=== PATIENT | female | born 1955 | race Caucasian/White ===

== ENCOUNTER 2019-01-30 20:17 | Inpatient (IN) | payer BC ==
[~2019-01-30] VITALS: Ht 162.6 cm; Wt 59.0 kg
[~2019-01-30 20:17] MED LIST: ETOMIDATE 20 MG/10 ML ONE; PROPOFOL 10 MG/ML, 100ML IV ONE; ROCURONIUM 10 MG/ML,10ML ONE
[2019-01-30] MEDS ORDERED: SODIUM CHLORIDE 0.9% 1,000ML IVBOLUS ONE (20:30)
[2019-01-30] MEDS ORDERED: ALBUTEROL SULFATE 2.5 MG/3 ML NPPB ONE (20:30)
--- NOTE | 2019-01-30 20:35 | NUR ---
PG CODE CARDIAC @2034
[2019-01-30 20:46] LABS: MEAN CORPUSCULAR HEMOGLOBIN 31.5 pg (27.0-34.8); MEAN CORPUSCULAR HGB CONC 31.9 g/dL (32.4-35.8); MEAN CORPUSCULAR VOLUME 98.8 fL (80-100); MEAN PLATELET VOLUME 9.5 fL (7.4-10.4); PLATELET COUNT 301 x10^3/uL (130-400); RED BLOOD COUNT 4.93 x10^6/uL (3.82-5.3); RED CELL DISTRIBUTION WIDTH 14.6 % (9.6-15.2)
[2019-01-30 20:48] LABS: MD YES
--- NOTE | 2019-01-30 20:49 | NUR ---
Pt presents to ed c/o COPD exacerbation @ home. Wears bipap and bipap broke, precipatating 911 call. Presents to ed w/ tracheal pulling and accessory muscles to breathe. Able to follow commands when asked, but only talking in 1 word sentences. Intubated by Joe PEARSON and equal breath sounds in all four quadrants. 7 ET established 21 at the lip. ET confirmed by xr and md approval. Propofol initiated per Md verbal order. 2 iv's established, og tube established--confirmed by auscultation and aspiration--and johnson catheter in place. Soft restraints applied for pt safety. Pt not able to give accurate hx and only hx known by ems is copd and use of digoxin and a beta dion.
[2019-01-30] MEDS ORDERED: PROPOFOL 100 ML IV ONE (20:54)
[2019-01-30 21:00] LABS: ALANINE AMINOTRANSFERASE 45 U/L (12-78); ALBUMIN 3.7 g/dL (3.4-5.0); ANION GAP 4 mmol/L (5-15); CHLORIDE 102 mmol/L (98-107); CREATININE 1.07 mg/dL (0.55-1.02)
[2019-01-30] MEDS ORDERED: PIPERACILLIN/TAZO/PMX 3.375GM 50 ML IVPB ONE (21:00)
[2019-01-30] MEDS ORDERED: PIPERACILLIN/TAZO/PMX 3.375GM 50 ML ONE (21:00)
[2019-01-30] MEDS ORDERED: VANCOMYCIN 1,200 MG in SODIUM CHLORIDE 0.9% 250 ML IV ONE (21:00)
[2019-01-30] MEDS ORDERED: ROCURONIUM 10 MG/ML,10ML IVPush ONE (21:00)
[2019-01-30] MEDS ORDERED: VANCOMYCIN PER PHARMACY IV ONE (21:00)
[2019-01-30] MEDS ORDERED: ETOMIDATE 20 MG/10 ML IVPush ONE (21:00)
[2019-01-30 21:04] LABS: ALKALINE PHOSPHATASE 68 U/L (45-117); BILIRUBIN,TOTAL 0.3 mg/dL (0.2-1.0); TOTAL PROTEIN 6.8 g/dL (6.4-8.2); TROPONIN I < 0.015 ng/mL (0.000-0.045)
[2019-01-30] MEDS ORDERED: DIGOXIN (21:14)
[2019-01-30] MEDS ORDERED: BETA BLOCKER (21:15)
[2019-01-30] MEDS ORDERED: TICAGRELOR 90 MG TABLET ONE (21:15)
[2019-01-30] MEDS ORDERED: MIDAZOLAM 1 MG/ML, 5ML ONE (21:15)
[2019-01-30] MEDS ORDERED: FENTANYL PF 100 MCG/2ML ONE (21:15)
[2019-01-30] MEDS ORDERED: VERAPAMIL 2.5 MG/ML, 2ML ONE (21:15)
[2019-01-30] MEDS ORDERED: BIVALIRUDIN 250 MG ONE (21:16)
[2019-01-30] MEDS ORDERED: LIDOCAINE 2%, 20ML ONE (21:16)
[2019-01-30] MEDS ORDERED: HEPARIN 1,000 UNITS/ML, 10ML ONE (21:16)
--- NOTE | 2019-01-30 21:20 | NUR ---
Pt transported to laborer driver w/ ACLS transport in place.
[2019-01-30 21:32] LABS: BASOS#(MANUAL) 0.18 x10^3/uL (0-0.1); BASOS% (MANUAL) 1 % (0-1); EOS#(MANUAL) 0.54 x10^3/uL (0.0-0.4); EOS% (MANUAL) 3 % (1-7); LYMPH#(MANUAL) 5.94 x10^3/uL (1-3.4); LYMPHS% (MANUAL) 33 % (22-44); MONOS#(MANUAL) 1.08 x10^3/uL (0.3-2.7); MONOS% (MANUAL) 6 % (2-9); REACTIVE LYMPHS # (MANUAL) 0.54 x10^3/uL (0-0); REACTIVE LYMPHS % (MANUAL) 3 % (0-0); SEG#(MANUAL) 9.72 x10^3/uL (1.8-6.8); SEGS% (MANUAL) 54 % (42-75)
[2019-01-30 21:33] LABS: <PLATELET ESTIMATE> ADEQUATE; <PLT MORPHOLOGY> NORMAL PLT MORPH; <RBC MORPHOLOGY> NORMAL
[2019-01-30 22:30] VITALS: BP_SYST 83; BP_SYST 88; BP_DIAS 53
[2019-01-30] MEDS: SODIUM CHLORIDE 0.9% 1,000 ML IV SCH ×2 (22:51→23:01)
[2019-01-30] MEDS ORDERED: HYDROcodone/APAP 5/325 TABLET PO PRN (23:00)
[2019-01-30] MEDS ORDERED: ACETAMINOPHEN 325 MG TABLET PO PRN (23:00)
[2019-01-30] MEDS ORDERED: DOCUSATE 100 MG CAPSULE PO PRN (23:00)
[2019-01-30] MEDS ORDERED: SODIUM CHLORIDE 0.9%, 500ML IVBOLUS ONE (23:00)
[2019-01-30] MEDS ORDERED: morphine SULFATE 10 MG/ML, 1ML IVPush PRN (23:00)
[2019-01-30] MEDS ORDERED: hydrALAzine 20 MG/ML, 1ML IVPush PRN (23:00)
[2019-01-30] MEDS ORDERED: methylPREDNISolone SOD SUCC 125 MG/2 ML IVPush SCH (23:00)
[2019-01-30] MEDS: ALBUTEROL/IPRATROPIUM 2.5MG/0.5MG, 3 ML INLINE SCH (23:00)
[2019-01-30] MEDS ORDERED: ONDANSETRON 2MG/ML, 2ML IVPush PRN (23:00)
[2019-01-30] MEDS ORDERED: PROPOFOL 100 ML IV PRN (23:12)
[2019-01-30 23:17] LABS: MICROSCOPIC NOT IND
[2019-01-30 23:19] LABS: CULTURE INDICATED? NO
[2019-01-30] MEDS ORDERED: HEPARIN 5,000 UNITS/ML, 1ML SQ SCH (23:30)
[2019-01-30] MEDS ORDERED: GLUCAGON 1 MG IM PRN (23:30)
[2019-01-30] MEDS ORDERED: DEXTROSE 4 GM TAB.CHEW PO PRN (23:30)
[2019-01-30] MEDS ORDERED: SENNA 176 MG/5 ML ORAL SOL NG PRN (23:30)
[2019-01-30] MEDS ORDERED: LIDOCAINE-MPF 1%, 2ML ENDO PRN (23:30)
[2019-01-30] MEDS ORDERED: FENTANYL PF 100 MCG/2ML IVPush PRN (23:30)
[2019-01-30] MEDS ORDERED: SENNA/DOCUSATE TABLET NG PRN (23:30)
[2019-01-30] MEDS ORDERED: BISACODYL 10 MG SUPP PR PRN (23:30)
[2019-01-30] MEDS ORDERED: LACTULOSE 20 GM/30 ML UDC NG PRN (23:30)
[2019-01-30] MEDS ORDERED: PHARMACY MAY ADJ FOR RENAL FX MC SCH (23:30)
[2019-01-30] MEDS ORDERED: DEXTROSE 50%, 50ML SYRINGE IVPush PRN (23:30)
[2019-01-30] MEDS ORDERED: MAGNESIUM SULFATE PMX 2GM/50ML 50 ML IV STA (23:52)
[2019-01-30 23:57] LABS: BASOPHILS # (AUTO) 0.01 x10^3/uL (0-0.1); BASOPHILS % (AUTO) 0 % (0-1); EOSINOPHILS # (AUTO) 0.32 x10^3/uL (0-0.4); EOSINOPHILS % (AUTO) 2 % (1-7); LYMPHOCYTES # (AUTO) 1.15 x10^3/uL (1-3.4); LYMPHOCYTES % (AUTO) 8 % (22-44); MD NO; MEAN CORPUSCULAR HEMOGLOBIN 31.5 pg (27.0-34.8); MEAN CORPUSCULAR HGB CONC 32.2 g/dL (32.4-35.8); MEAN CORPUSCULAR VOLUME 97.8 fL (80-100); MEAN PLATELET VOLUME 8.7 fL (7.4-10.4); MONOCYTES # (AUTO) 0.73 x10^3/uL (0.2-0.8); MONOCYTES % (AUTO) 5 % (2-9); NEUTROPHILS # (AUTO) 12.66 x10^3/uL (1.8-6.8); NEUTROPHILS % (AUTO) 85 % (42-75); PLATELET COUNT 219 x10^3/uL (130-400); RED BLOOD COUNT 4.14 x10^6/uL (3.82-5.3); RED CELL DISTRIBUTION WIDTH 14.1 % (9.6-15.2)
[2019-01-31 00:01] LABS: ANION GAP 5 mmol/L (5-15); CALCIUM 7.7 mg/dL (8.5-10.1); CHLORIDE 109 mmol/L (98-107); CREATININE 0.86 mg/dL (0.55-1.02); TRIGLYCERIDES 44 mg/dL (50-200)
[2019-01-31 00:12] LABS: TROPONIN I 0.019 ng/mL (0.000-0.045)
[2019-01-31 01:03] LABS: INTERNATIONAL NORMALIZED RATIO 1.05 (0.93-1.1)
[2019-01-31] MEDS: ALBUTEROL/IPRATROPIUM 2.5MG/0.5MG, 3 ML INLINE SCH ×2 (02:18→07:30)
[2019-01-31] MEDS: INSULIN LISPRO 100 UNITS/ML, PEN SQ-INSULIN SCH ×4 (03:00→21:00)
[2019-01-31 04:00] VITALS: BP 94/61
[2019-01-31] MEDS: PIPERACILLIN/TAZO/PMX 3.375GM 50 ML IV SCH ×4 (04:45→22:35)
[2019-01-31] MEDS: ENOXAPARIN 40 MG/0.4 ML SQ SCH (04:46)
[2019-01-31 04:57] LABS: ALANINE AMINOTRANSFERASE 49 U/L (12-78); ALBUMIN 3.2 g/dL (3.4-5.0); ANION GAP 4 mmol/L (5-15); CALCIUM 8.1 mg/dL (8.5-10.1); CHLORIDE 107 mmol/L (98-107)
[2019-01-31 05:00] LABS: BILIRUBIN,TOTAL 0.5 mg/dL (0.2-1.0); CHOL/HDL RATIO 2.6; CHOLESTEROL, TOTAL 122 mg/dL (140-239); CREATININE 0.77 mg/dL (0.55-1.02); HDL CHOL % 39 % (28-40); HDL CHOLESTEROL (DIRECT) 47 mg/dL (40-60); LDL CHOLESTEROL,CALCULATED 58 mg/dL (54-169); LDL/HDL RATIO 1.2 (0.5-3.0); TOTAL PROTEIN 5.8 g/dL (6.4-8.2); TRIGLYCERIDES 84 mg/dL (50-200); TROPONIN I 0.017 ng/mL (0.000-0.045); VLDL CHOLESTEROL 17 mg/dL (0-25)
[2019-01-31] MEDS ORDERED: methylPREDNISolone SOD SUCC 125 MG/2 ML IVPush SCH ×2 (05:00)
[2019-01-31 05:01] LABS: MEAN CORPUSCULAR HEMOGLOBIN 30.7 pg (27.0-34.8); MEAN CORPUSCULAR HGB CONC 31.7 g/dL (32.4-35.8); MEAN CORPUSCULAR VOLUME 96.6 fL (80-100); PLATELET COUNT 213 x10^3/uL (130-400); RED BLOOD COUNT 4.37 x10^6/uL (3.82-5.3); RED CELL DISTRIBUTION WIDTH 14.3 % (9.6-15.2)
[2019-01-31 05:05] LABS: ALKALINE PHOSPHATASE 54 U/L (45-117)
[2019-01-31] MEDS: ASPIRIN 81 MG TABLET EC PO SCH (06:04)
[2019-01-31 06:19] LABS: BASOPHILS # (AUTO) 0.01 x10^3/uL (0-0.1); BASOPHILS % (AUTO) 0 % (0-1); EOSINOPHILS # (AUTO) 0.02 x10^3/uL (0-0.4); EOSINOPHILS % (AUTO) 0 % (1-7); LYMPHOCYTES # (AUTO) 0.44 x10^3/uL (1-3.4); LYMPHOCYTES % (AUTO) 5 % (22-44); MD SCAN; MONOCYTES # (AUTO) 0.06 x10^3/uL (0.2-0.8); MONOCYTES % (AUTO) 1 % (2-9); NEUTROPHILS # (AUTO) 8.96 x10^3/uL (1.8-6.8); NEUTROPHILS % (AUTO) 95 % (42-75)
[2019-01-31] MEDS ORDERED: INSULIN LISPRO 100 UNITS/ML, PEN SQ-INSULIN SCH ×2 (07:00)
[2019-01-31] MEDS: BUDESONIDE 0.5 MG/2 ML INHA INH SCH ×2 (08:00→18:55)
[2019-01-31] MEDS: ALBUTEROL/IPRATROPIUM 2.5MG/0.5MG, 3 ML NPPB SCH ×4 (09:44→23:00)
[2019-01-31] MEDS ORDERED: ALBUTEROL/IPRATROPIUM 2.5MG/0.5MG, 3 ML NPPB PRN (10:00)
[2019-01-31] MEDS ORDERED: SIMV20TA3 PO (10:24)
[2019-01-31] MEDS ORDERED: DIGO0.12 PO (10:24)
[2019-01-31] MEDS ORDERED: CLOP75TA52 PO (10:24)
[2019-01-31] MEDS ORDERED: TIOT18CA INH (10:24)
[2019-01-31] MEDS ORDERED: CARV25TA PO (10:24)
[2019-01-31] MEDS: SODIUM CHLORIDE FLUSH 10ML SYR IVF SCH ×2 (11:03→21:00)
[2019-01-31] MEDS: CLOPIDOGREL 75 MG TABLET PO SCH (11:04)
[2019-01-31] MEDS: methylPREDNISolone SOD SUCC 40 MG/ML IVPush SCH ×2 (13:24→21:50)
[2019-01-31 19:30] VITALS: BP 106/55
[2019-01-31] MEDS: SIMVASTATIN 40 MG TABLET PO SCH (21:49)
[2019-01-31] MEDS ORDERED: SODIUM CHLORIDE 0.9% 1,000 ML IV SCH (22:43)
[2019-02-01 01:11] VITALS: BP 102/67
[2019-02-01] MEDS: OMEPRAZOLE 20 MG CAPSULE.DR PO SCH (04:40)
[2019-02-01] MEDS: PIPERACILLIN/TAZO/PMX 3.375GM 50 ML IV SCH ×3 (04:40→21:46)
[2019-02-01] MEDS: methylPREDNISolone SOD SUCC 40 MG/ML IVPush SCH ×3 (04:40→21:46)
[2019-02-01] MEDS: ASPIRIN 81 MG TABLET EC PO SCH (04:41)
[2019-02-01] MEDS: ENOXAPARIN 40 MG/0.4 ML SQ SCH (04:42)
[2019-02-01 05:11] LABS: ANION GAP 6 mmol/L (5-15); CALCIUM 8.4 mg/dL (8.5-10.1); CHLORIDE 107 mmol/L (98-107); CREATININE 1.06 mg/dL (0.55-1.02)
[2019-02-01 05:22] LABS: BASOPHILS % (AUTO) 0 % (0-1); EOSINOPHILS # (AUTO) 0.01 x10^3/uL (0-0.4); EOSINOPHILS % (AUTO) 0 % (1-7); LYMPHOCYTES # (AUTO) 0.68 x10^3/uL (1-3.4); LYMPHOCYTES % (AUTO) 8 % (22-44); MD NO; MEAN CORPUSCULAR HEMOGLOBIN 30.3 pg (27.0-34.8); MEAN CORPUSCULAR HGB CONC 31.3 g/dL (32.4-35.8); MEAN CORPUSCULAR VOLUME 96.9 fL (80-100); MEAN PLATELET VOLUME 9.2 fL (7.4-10.4); MONOCYTES # (AUTO) 0.18 x10^3/uL (0.2-0.8); MONOCYTES % (AUTO) 2 % (2-9); NEUTROPHILS # (AUTO) 8.14 x10^3/uL (1.8-6.8); NEUTROPHILS % (AUTO) 90 % (42-75); PLATELET COUNT 207 x10^3/uL (130-400); RED BLOOD COUNT 4.12 x10^6/uL (3.82-5.3); RED CELL DISTRIBUTION WIDTH 14.2 % (9.6-15.2)
[2019-02-01 06:58] VITALS: BP 107/66
[2019-02-01] MEDS: ALBUTEROL/IPRATROPIUM 2.5MG/0.5MG, 3 ML NPPB SCH ×5 (07:00→22:55)
[2019-02-01] MEDS: BUDESONIDE 0.5 MG/2 ML INHA INH SCH ×2 (07:00→19:10)
[2019-02-01] MEDS: INSULIN LISPRO 100 UNITS/ML, PEN SQ-INSULIN SCH ×4 (07:00→21:00)
[2019-02-01] MEDS: CLOPIDOGREL 75 MG TABLET PO SCH (08:43)
[2019-02-01] MEDS: SODIUM CHLORIDE FLUSH 10ML SYR IVF SCH ×2 (08:46→21:00)
[2019-02-01 12:40] VITALS: BP 115/70
[2019-02-01 20:05] VITALS: BP 114/68
[2019-02-01] MEDS: SIMVASTATIN 40 MG TABLET PO SCH (21:47)
[2019-02-02] MEDS: PIPERACILLIN/TAZO/PMX 3.375GM 50 ML IV SCH (03:01)
[2019-02-02 03:05] VITALS: BP 131/73
[2019-02-02 05:20] LABS: BASOPHILS % (AUTO) 0 % (0-1); EOSINOPHILS # (AUTO) 0.07 x10^3/uL (0-0.4); EOSINOPHILS % (AUTO) 1 % (1-7); LYMPHOCYTES % (AUTO) 6 % (22-44); MD NO; MEAN CORPUSCULAR HEMOGLOBIN 31.6 pg (27.0-34.8); MEAN CORPUSCULAR HGB CONC 32.5 g/dL (32.4-35.8); MEAN CORPUSCULAR VOLUME 97.1 fL (80-100); MEAN PLATELET VOLUME 9.5 fL (7.4-10.4); MONOCYTES # (AUTO) 0.23 x10^3/uL (0.2-0.8); MONOCYTES % (AUTO) 2 % (2-9); NEUTROPHILS # (AUTO) 9.18 x10^3/uL (1.8-6.8); NEUTROPHILS % (AUTO) 91 % (42-75); PLATELET COUNT 195 x10^3/uL (130-400); RED BLOOD COUNT 3.98 x10^6/uL (3.82-5.3); RED CELL DISTRIBUTION WIDTH 14.4 % (9.6-15.2)
[2019-02-02 05:26] LABS: ANION GAP 5 mmol/L (5-15); CALCIUM 8.1 mg/dL (8.5-10.1); CHLORIDE 107 mmol/L (98-107)
[2019-02-02 05:28] LABS: CREATININE 0.78 mg/dL (0.55-1.02); TRIGLYCERIDES 64 mg/dL (50-200)
[2019-02-02] MEDS: ASPIRIN 81 MG TABLET EC PO SCH (05:39)
[2019-02-02] MEDS: OMEPRAZOLE 20 MG CAPSULE.DR PO SCH (05:39)
[2019-02-02] MEDS: methylPREDNISolone SOD SUCC 40 MG/ML IVPush SCH ×3 (05:40→21:01)
[2019-02-02] MEDS: ENOXAPARIN 40 MG/0.4 ML SQ SCH (05:40)
[2019-02-02] MEDS: INSULIN LISPRO 100 UNITS/ML, PEN SQ-INSULIN SCH ×4 (07:00→21:00)
[2019-02-02] MEDS: ALBUTEROL/IPRATROPIUM 2.5MG/0.5MG, 3 ML NPPB SCH ×5 (07:50→22:06)
[2019-02-02] MEDS: BUDESONIDE 0.5 MG/2 ML INHA INH SCH ×2 (07:50→20:53)
[2019-02-02 08:11] VITALS: BP 117/74
[2019-02-02] MEDS: SODIUM CHLORIDE FLUSH 10ML SYR IVF SCH ×2 (09:07→21:01)
[2019-02-02] MEDS: DOXYCYCLINE 100MG TABLET PO SCH ×2 (09:08→21:01)
[2019-02-02] MEDS: CEFDINIR 300 MG CAPSULE PO SCH ×2 (09:08→21:01)
[2019-02-02] MEDS: CLOPIDOGREL 75 MG TABLET PO SCH (09:08)
[2019-02-02 12:42] VITALS: BP 115/72
[2019-02-02 18:46] VITALS: BP 122/69
[2019-02-02] MEDS: SIMVASTATIN 40 MG TABLET PO SCH (21:02)
[2019-02-03 00:49] VITALS: BP 116/74
[2019-02-03 05:23] LABS: BASOPHILS # (AUTO) 0.01 x10^3/uL (0-0.1); BASOPHILS % (AUTO) 0 % (0-1); EOSINOPHILS # (AUTO) 0.09 x10^3/uL (0-0.4); EOSINOPHILS % (AUTO) 1 % (1-7); LYMPHOCYTES # (AUTO) 0.81 x10^3/uL (1-3.4); LYMPHOCYTES % (AUTO) 8 % (22-44); MD NO; MEAN CORPUSCULAR HEMOGLOBIN 31.6 pg (27.0-34.8); MEAN CORPUSCULAR HGB CONC 32.5 g/dL (32.4-35.8); MEAN CORPUSCULAR VOLUME 97.1 fL (80-100); MEAN PLATELET VOLUME 9.4 fL (7.4-10.4); MONOCYTES # (AUTO) 0.41 x10^3/uL (0.2-0.8); MONOCYTES % (AUTO) 4 % (2-9); NEUTROPHILS # (AUTO) 8.89 x10^3/uL (1.8-6.8); NEUTROPHILS % (AUTO) 87 % (42-75); PLATELET COUNT 206 x10^3/uL (130-400); RED BLOOD COUNT 4.12 x10^6/uL (3.82-5.3); RED CELL DISTRIBUTION WIDTH 14.3 % (9.6-15.2)
[2019-02-03 05:41] LABS: CHLORIDE 107 mmol/L (98-107)
[2019-02-03 05:47] LABS: ALANINE AMINOTRANSFERASE 27 U/L (12-78); ALBUMIN 2.9 g/dL (3.4-5.0); ALKALINE PHOSPHATASE 41 U/L (45-117); ANION GAP 5 mmol/L (5-15); BILIRUBIN,TOTAL 0.2 mg/dL (0.2-1.0); CALCIUM 8.5 mg/dL (8.5-10.1); CREATININE 0.75 mg/dL (0.55-1.02); TOTAL PROTEIN 5.3 g/dL (6.4-8.2)
[2019-02-03] MEDS: ALBUTEROL/IPRATROPIUM 2.5MG/0.5MG, 3 ML NPPB SCH ×2 (06:00→10:00)
[2019-02-03] MEDS: BUDESONIDE 0.5 MG/2 ML INHA INH SCH (06:34)
[2019-02-03] MEDS: ASPIRIN 81 MG TABLET EC PO SCH (06:38)
[2019-02-03] MEDS: OMEPRAZOLE 20 MG CAPSULE.DR PO SCH (06:38)
[2019-02-03] MEDS: ENOXAPARIN 40 MG/0.4 ML SQ SCH (06:38)
[2019-02-03] MEDS: INSULIN LISPRO 100 UNITS/ML, PEN SQ-INSULIN SCH ×2 (07:28→11:10)
[2019-02-03 07:57] VITALS: BP 129/78
[2019-02-03] MEDS: DOXYCYCLINE 100MG TABLET PO SCH (07:59)
[2019-02-03] MEDS: CEFDINIR 300 MG CAPSULE PO SCH (07:59)
[2019-02-03] MEDS: CLOPIDOGREL 75 MG TABLET PO SCH (08:02)
[2019-02-03] MEDS: SODIUM CHLORIDE FLUSH 10ML SYR IVF SCH (08:03)
[2019-02-03] MEDS ORDERED: SPIRONOLACTONE 25 MG TABLET PO SCH (09:00)
[2019-02-03] MEDS ORDERED: LISINOPRIL 5 MG TABLET PO SCH (09:00)
[2019-02-03] MEDS ORDERED: PRED20TA PO (09:58)
[2019-02-03] MEDS ORDERED: DOXY100T PO (09:58)
[2019-02-03] MEDS ORDERED: SPIR25TA5 PO (09:58)
[2019-02-03] MEDS ORDERED: OMEP-110 PO (09:58)
[2019-02-03] MEDS ORDERED: ASPI81TA45 PO (09:58)
[2019-02-03] MEDS ORDERED: BUDE10.2 INJ (09:58)
[2019-02-03] MEDS ORDERED: SIMV40TA3 PO (09:58)
[2019-02-03] MEDS ORDERED: CEFD300C37 PO (09:58)
[2019-02-03] MEDS ORDERED: LISI5TAB7 PO (09:58)
[2019-04-03] MEDS ORDERED: PRED10TA PO (08:48)
[2019-04-03] MEDS ORDERED: CARV3.1212 PO (08:48)
[2019-04-03] MEDS ORDERED: DOXY100C2 PO (08:48)
== END 2019-02-03 11:47 | disposition home or self-care (01) | DRG 208 ==
LOC: ED 21:30 → EDIP 21:35 → CSU 22:07 → 5SO 01-31 14:25 → DCLOUNGE 02-03 11:38
PROVIDERS: ADMIT Internal Medicine; ATTEND Internal Medicine
PROC: 5A1935Z Respiratory Ventilation, Less than 24 Consecutive Hours (ICD-10-PCS; principal; 2019-01-30)
PROC: 0BH17EZ Insertion of Endotracheal Airway into Trachea, Via Natural or Artificial Opening (ICD-10-PCS; 2019-01-30)
PROC: 4A023N7 Measurement of Cardiac Sampling and Pressure, Left Heart, Percutaneous Approach (ICD-10-PCS; 2019-01-30)
PROC: B2111ZZ Fluoroscopy of Multiple Coronary Arteries using Low Osmolar Contrast (ICD-10-PCS; 2019-01-30)
PROC: B2151ZZ Fluoroscopy of Left Heart using Low Osmolar Contrast (ICD-10-PCS; 2019-01-30)
PROC: 0T9B70Z Drainage of Bladder with Drainage Device, Via Natural or Artificial Opening (ICD-10-PCS; 2019-01-30)
DX: J96.01 Acute respiratory failure with hypoxia (principal); J44.1 Chronic obstructive pulmonary disease with (acute) exacerbation; Z99.11 Dependence on respirator [ventilator] status; J44.0 Chronic obstructive pulmonary disease with (acute) lower respiratory infection; I25.10 Atherosclerotic heart disease of native coronary artery without angina pectoris; E78.5 Hyperlipidemia, unspecified; I25.5 Ischemic cardiomyopathy; I50.9 Heart failure, unspecified; Z95.5 Presence of coronary angioplasty implant and graft; Z95.810 Presence of automatic (implantable) cardiac defibrillator; Z99.81 Dependence on supplemental oxygen; F17.210 Nicotine dependence, cigarettes, uncomplicated; G47.33 Obstructive sleep apnea (adult) (pediatric); I11.0 Hypertensive heart disease with heart failure; I25.2 Old myocardial infarction; J20.9 Acute bronchitis, unspecified
CPT/HCPCS: 36415; 36600; 84145; 93458; 99291; J3490; J7613; J7620; J7626; 71045; 80047; 80048; 80053; 80061; 80162; 81003; 82803; 82962; 83605; 83735; 83880; 84100; 84443; 84478; 84484; 85025; 85610; 85730; 87040; 87070; 87077; 87081; 87186; 87205; 93005; 93306; 94002; 94003; 94640; 96365; 99156; C1769; C1894; G0378; J0583; J1644; J1650; J2250; J2543; J2704; J3010; J3370; C1887; J1815; J2920; J2930; J3475; J7030; J7040; J7050; J7512; Q9967

== ENCOUNTER 2019-05-13 16:37 | Inpatient (IN) | payer BC ==
[~2019-05-13] VITALS: Ht 162.6 cm; Wt 64.0 kg
[~2019-05-13 16:37] MED LIST changes: +ASPI81TA45 PO; +BETA BLOCKER; +BUDE10.2 INJ; +CARV25TA PO; +CARV3.1212 PO; +CEFD300C37 PO; +CLOP75TA52 PO; +DIGO0.12 PO; +DIGOXIN; +DOXY100C2 PO; +DOXY100T PO; -ETOMIDATE 20 MG/10 ML ONE; +LISI5TAB7 PO; +OMEP-110 PO; +PRED10TA PO; +PRED20TA PO; -PROPOFOL 10 MG/ML, 100ML IV ONE; -ROCURONIUM 10 MG/ML,10ML ONE; +SIMV20TA3 PO; +SIMV40TA3 PO; +SPIR25TA5 PO; +TIOT18CA INH
[2019-05-13] MEDS: SODIUM CHLORIDE 0.9% 1,000 ML IV SCH (17:12)
[2019-05-13] MEDS ORDERED: CEFAZOLIN PMX 1GM/50ML 50 ML IVPB ONE (17:30)
[2019-05-13 17:43] VITALS: BP 124/80
[2019-05-13] MEDS: PLEASE ENTER HEIGHT AND WEIGHT MC SCH (18:04)
[2019-05-13 18:14] VITALS: BP 124/80
[2019-05-13] MEDS ORDERED: SIMV20TA3 PO (18:29)
[2019-05-13 19:29] VITALS: BP 109/63
[2019-05-13] MEDS ORDERED: ALBUTEROL SULFATE 2.5 MG/3 ML HHN SCH (19:30)
[2019-05-13] MEDS ORDERED: IPRATROPIUM 0.5 MG/2.5 ML INHA HHN SCH (19:30)
[2019-05-13 19:50] VITALS: BP 169/69
[2019-05-13 19:55] VITALS: BP 131/77
[2019-05-13] MEDS ORDERED: AMIODARONE IN D5W 100 ML IV ONE (20:00)
[2019-05-13] MEDS ORDERED: AMIODARONE 150 MG in DEXTROSE 5% 100 ML IV ONE ×2 (20:08→20:09)
[2019-05-13] MEDS ORDERED: AMIODARONE 900 MG in DEXTROSE 5% 482 ML IV PRN (20:15)
[2019-05-13] MEDS: ALBUTEROL/IPRATROPIUM 2.5MG/0.5MG, 3 ML NPPB SCH (20:25)
[2019-05-13] MEDS: BUDESONIDE 0.5 MG/2 ML INHA HHN SCH (20:25)
[2019-05-13] MEDS: SIMVASTATIN 20 MG TABLET PO SCH (20:36)
[2019-05-13 20:53] VITALS: BP 105/62
[2019-05-14] MEDS: SODIUM CHLORIDE 0.9% 1,000 ML IV SCH ×2 (01:12→10:44)
[2019-05-14 01:13] VITALS: BP 101/61
[2019-05-14] MEDS: PLEASE ENTER HEIGHT AND WEIGHT MC SCH (02:04)
[2019-05-14] MEDS: ALBUTEROL/IPRATROPIUM 2.5MG/0.5MG, 3 ML NPPB SCH ×4 (03:00→20:14)
[2019-05-14] MEDS: ASPIRIN 81 MG TABLET EC PO SCH (06:00)
[2019-05-14] MEDS: CLOPIDOGREL 75 MG TABLET PO SCH (08:15)
[2019-05-14] MEDS: CARVEDILOL 3.125 MG TABLET PO SCH ×2 (08:28→17:24)
[2019-05-14 09:04] VITALS: BP 110/76
[2019-05-14 09:58] LABS: BASOPHILS # (AUTO) 0.05 x10^3/uL (0-0.1); BASOPHILS % (AUTO) 1 % (0-1); EOSINOPHILS # (AUTO) 0.14 x10^3/uL (0-0.4); EOSINOPHILS % (AUTO) 2 % (1-7); LYMPHOCYTES # (AUTO) 2.18 x10^3/uL (1-3.4); LYMPHOCYTES % (AUTO) 24 % (22-44); MD NO; MEAN CORPUSCULAR HEMOGLOBIN 30.9 pg (27.0-34.8); MEAN CORPUSCULAR HGB CONC 32.3 g/dL (32.4-35.8); MEAN CORPUSCULAR VOLUME 95.8 fL (80-100); MEAN PLATELET VOLUME 8.1 fL (7.4-10.4); MONOCYTES % (AUTO) 8 % (2-9); NEUTROPHILS # (AUTO) 6.07 x10^3/uL (1.8-6.8); NEUTROPHILS % (AUTO) 66 % (42-75); PLATELET COUNT 365 x10^3/uL (130-400); RED BLOOD COUNT 4.61 x10^6/uL (3.82-5.3); RED CELL DISTRIBUTION WIDTH 13.6 % (9.6-15.2)
[2019-05-14 09:59] LABS: ALANINE AMINOTRANSFERASE 13 U/L (12-78); ALBUMIN 3.5 g/dL (3.4-5.0); ANION GAP 5 mmol/L (5-15); CALCIUM 8.5 mg/dL (8.5-10.1); CHLORIDE 108 mmol/L (98-107); CREATININE 0.77 mg/dL (0.55-1.02)
[2019-05-14 10:05] LABS: ALKALINE PHOSPHATASE 155 U/L (45-117); BILIRUBIN,TOTAL 0.4 mg/dL (0.2-1.0); TOTAL PROTEIN 6.3 g/dL (6.4-8.2)
[2019-05-14] MEDS: BUDESONIDE 0.5 MG/2 ML INHA HHN SCH ×2 (10:23→20:14)
[2019-05-14] MEDS: AMIODARONE 200 MG TABLET PO SCH ×2 (10:48→20:02)
[2019-05-14 12:37] VITALS: BP 103/61
[2019-05-14] MEDS: SIMVASTATIN 20 MG TABLET PO SCH (20:02)
[2019-05-14 21:42] VITALS: BP 108/62
[2019-05-14] MEDS ORDERED: ALBU18HF INH (23:25)
[2019-05-14] MEDS ORDERED: BUDE10.2 INH (23:25)
[2019-05-15] VITALS (7 sets, daily range): BP systolic 108–145; BP diastolic 58–80
[2019-05-15] MEDS: ALBUTEROL/IPRATROPIUM 2.5MG/0.5MG, 3 ML NPPB SCH ×4 (03:00→21:00)
[2019-05-15] MEDS: ASPIRIN 81 MG TABLET EC PO SCH (05:34)
[2019-05-15] MEDS: CARVEDILOL 3.125 MG TABLET PO SCH ×2 (05:34→17:32)
[2019-05-15] MEDS: BUDESONIDE 0.5 MG/2 ML INHA HHN SCH ×2 (08:38→21:00)
[2019-05-15] MEDS: CLOPIDOGREL 75 MG TABLET PO SCH (09:00)
[2019-05-15] MEDS ORDERED: SODIUM CHLORIDE 0.9% 1,000 ML IV SCH (09:00)
[2019-05-15] MEDS ORDERED: MIDAZOLAM 1 MG/ML, 5ML ONE (09:30)
[2019-05-15] MEDS ORDERED: FENTANYL PF 100 MCG/2ML ONE (09:30)
[2019-05-15] MEDS ORDERED: CEFAZOLIN PMX 1GM/50ML 50 ML ONE (09:30)
[2019-05-15] MEDS ORDERED: LIDOCAINE 2%, 20ML ONE (09:31)
[2019-05-15] MEDS ORDERED: CEFAZOLIN 1,000 MG ONE (09:31)
[2019-05-15] MEDS ORDERED: HOLD MEDICATION MC PRN (10:30)
[2019-05-15] MEDS: AMIODARONE 200 MG TABLET PO SCH ×2 (11:23→20:49)
[2019-05-15] MEDS ORDERED: AMIO200T42 PO (12:31)
[2019-05-15] MEDS ORDERED: CEFAZOLIN PMX 1GM/50ML 50 ML IV ONE (13:00)
[2019-05-15] MEDS ORDERED: LISI5TAB7 PO (14:17)
[2019-05-15] MEDS ORDERED: AMIODARONE 150 MG in DEXTROSE 5% 100 ML IV ONE (15:30)
[2019-05-15] MEDS ORDERED: MAGNESIUM SULFATE PMX 2GM/50ML 50 ML IV ONE (15:30)
[2019-05-15 16:18] LABS: ANION GAP 6 mmol/L (5-15); CALCIUM 8.8 mg/dL (8.5-10.1); CHLORIDE 105 mmol/L (98-107); CREATININE 0.73 mg/dL (0.55-1.02)
[2019-05-15] MEDS: AMIODARONE 900 MG in DEXTROSE 5% 482 ML IV PRN (16:24)
[2019-05-15] MEDS: SIMVASTATIN 20 MG TABLET PO SCH (20:49)
[2019-05-15] MEDS: METHOCARBAMOL 500 MG TABLET PO PRN (20:49)
[2019-05-15] MEDS: SODIUM CHLORIDE FLUSH 10ML SYR IVF SCH (20:49)
[2019-05-15] MEDS ORDERED: LIDODERM 5% PATCH TD ONE (21:00)
[2019-05-15] MEDS ORDERED: AMIODARONE 50 MG/ML, 3ML IVPush ONE (21:30)
[2019-05-15] MEDS ORDERED: AMIODARONE IN D5W 100 ML IV SCH (21:30)
[2019-05-15] MEDS ORDERED: LIDOCAINE IV PRN ×3 (22:00)
[2019-05-15] MEDS ORDERED: DEX IV PRN ×3 (22:00)
[2019-05-15] MEDS: LIDOCAINE IV PRN (22:06)
[2019-05-15] MEDS: DEX IV PRN (22:06)
[2019-05-16] VITALS: BP 104/70
[2019-05-16 01:35] VITALS: BP 97/64
[2019-05-16] MEDS: ALBUTEROL/IPRATROPIUM 2.5MG/0.5MG, 3 ML NPPB SCH ×4 (03:00→20:18)
[2019-05-16] MEDS: ASPIRIN 81 MG TABLET EC PO SCH (05:36)
[2019-05-16] MEDS: METHOCARBAMOL 500 MG TABLET PO PRN ×3 (05:36→20:44)
[2019-05-16] MEDS: CARVEDILOL 3.125 MG TABLET PO SCH ×2 (05:37→18:04)
[2019-05-16] MEDS: AMIODARONE 900 MG in DEXTROSE 5% 482 ML IV PRN ×2 (05:40→20:52)
[2019-05-16] MEDS: DEX IV PRN ×3 (05:41→22:40)
[2019-05-16] MEDS: LIDOCAINE IV PRN ×3 (05:41→22:40)
[2019-05-16] MEDS: BUDESONIDE 0.5 MG/2 ML INHA HHN SCH ×2 (08:37→20:18)
[2019-05-16 08:39] VITALS: BP 109/74
[2019-05-16] MEDS: AMIODARONE 200 MG TABLET PO SCH ×2 (08:49→20:44)
[2019-05-16] MEDS: SODIUM CHLORIDE FLUSH 10ML SYR IVF SCH ×2 (09:00→20:45)
[2019-05-16] MEDS: CLOPIDOGREL 75 MG TABLET PO SCH (10:15)
[2019-05-16 12:56] VITALS: BP 125/85
[2019-05-16] MEDS ORDERED: HEPARIN 5,000 UNITS/ML, 1ML IV PRN (13:00)
[2019-05-16] MEDS ORDERED: HEPARIN 25,000 UNITS/500ML PMX 500 ML IV PRN (13:00)
[2019-05-16] MEDS: HEPARIN 25,000 UNITS/500ML PMX 500 ML IV PRN (13:12)
[2019-05-16 18:03] VITALS: BP 111/76
[2019-05-16 19:58] VITALS: BP 114/77
[2019-05-16] MEDS: SIMVASTATIN 20 MG TABLET PO SCH (20:44)
[2019-05-16] MEDS: FILTER 0.22 MICRON IV PRN (20:53)
[2019-05-16] MEDS: HEPARIN 5,000 UNITS/ML, 1ML IV PRN (21:20)
[2019-05-16] MEDS ORDERED: ONDANSETRON 2MG/ML, 2ML IVPush PRN (23:00)
[2019-05-16] MEDS: DEX IV SCH (23:45)
[2019-05-16] MEDS: LIDOCAINE IV SCH (23:45)
[2019-05-17 01:12] VITALS: BP 119/77
[2019-05-17] MEDS: ALBUTEROL/IPRATROPIUM 2.5MG/0.5MG, 3 ML NPPB SCH ×4 (03:00→20:10)
[2019-05-17] MEDS: ASPIRIN 81 MG TABLET EC PO SCH (05:04)
[2019-05-17] MEDS: HEPARIN 5,000 UNITS/ML, 1ML IV PRN (05:04)
[2019-05-17] MEDS: CARVEDILOL 3.125 MG TABLET PO SCH ×2 (05:04→18:18)
[2019-05-17] MEDS: BUDESONIDE 0.5 MG/2 ML INHA HHN SCH ×2 (07:16→20:10)
[2019-05-17 07:51] VITALS: BP 127/82
[2019-05-17] MEDS: METHOCARBAMOL 500 MG TABLET PO PRN ×2 (08:16→18:18)
[2019-05-17] MEDS: AMIODARONE 200 MG TABLET PO SCH ×2 (08:16→21:18)
[2019-05-17] MEDS: CLOPIDOGREL 75 MG TABLET PO SCH (08:16)
[2019-05-17] MEDS: SODIUM CHLORIDE FLUSH 10ML SYR IVF SCH ×2 (08:17→21:18)
[2019-05-17 11:41] LABS: MEAN CORPUSCULAR HEMOGLOBIN 30.7 pg (27.0-34.8); MEAN CORPUSCULAR HGB CONC 32.5 g/dL (32.4-35.8); MEAN CORPUSCULAR VOLUME 94.2 fL (80-100); MEAN PLATELET VOLUME 8.5 fL (7.4-10.4); PLATELET COUNT 330 x10^3/uL (130-400); RED BLOOD COUNT 4.58 x10^6/uL (3.82-5.3); RED CELL DISTRIBUTION WIDTH 13.4 % (9.6-15.2)
[2019-05-17 11:45] LABS: ALBUMIN 3.4 g/dL (3.4-5.0); ANION GAP 7 mmol/L (5-15); CALCIUM 8.5 mg/dL (8.5-10.1); CHLORIDE 101 mmol/L (98-107)
[2019-05-17 11:52] LABS: ALANINE AMINOTRANSFERASE 15 U/L (12-78); ALKALINE PHOSPHATASE 144 U/L (45-117); BILIRUBIN,TOTAL 0.4 mg/dL (0.2-1.0); CREATININE 0.76 mg/dL (0.55-1.02); TOTAL PROTEIN 6.5 g/dL (6.4-8.2)
[2019-05-17 12:01] LABS: BASOPHILS # (AUTO) 0.03 x10^3/uL (0-0.1); BASOPHILS % (AUTO) 0 % (0-1); EOSINOPHILS # (AUTO) 0.16 x10^3/uL (0-0.4); EOSINOPHILS % (AUTO) 1 % (1-7); LYMPHOCYTES # (AUTO) 1.39 x10^3/uL (1-3.4); LYMPHOCYTES % (AUTO) 12 % (22-44); MD SCAN; MONOCYTES # (AUTO) 0.66 x10^3/uL (0.2-0.8); MONOCYTES % (AUTO) 6 % (2-9); NEUTROPHILS # (AUTO) 9.78 x10^3/uL (1.8-6.8); NEUTROPHILS % (AUTO) 81 % (42-75)
[2019-05-17 12:16] VITALS: BP 130/80
[2019-05-17] MEDS: DEX IV SCH (13:26)
[2019-05-17] MEDS: LIDOCAINE IV SCH (13:26)
[2019-05-17] MEDS: AMIODARONE 900 MG in DEXTROSE 5% 482 ML IV PRN (13:29)
[2019-05-17] MEDS: HEPARIN 25,000 UNITS/500ML PMX 500 ML IV PRN (15:44)
[2019-05-17 18:14] VITALS: BP 114/70
[2019-05-17 19:01] VITALS: BP 116/70
[2019-05-17] MEDS: SIMVASTATIN 20 MG TABLET PO SCH (21:18)
[2019-05-18 01:41] VITALS: BP 107/65
[2019-05-18] MEDS: ALBUTEROL/IPRATROPIUM 2.5MG/0.5MG, 3 ML NPPB SCH ×5 (03:00→19:44)
[2019-05-18 05:00] VITALS: BP 145/87
[2019-05-18] MEDS: DEX IV SCH (05:32)
[2019-05-18] MEDS: LIDOCAINE IV SCH (05:32)
[2019-05-18] MEDS: AMIODARONE 900 MG in DEXTROSE 5% 482 ML IV PRN (05:33)
[2019-05-18] MEDS: FILTER 0.22 MICRON IV PRN (06:21)
[2019-05-18 07:35] VITALS: BP 137/78
[2019-05-18] MEDS: BUDESONIDE 0.5 MG/2 ML INHA HHN SCH ×2 (09:30→19:44)
[2019-05-18] MEDS: SODIUM CHLORIDE FLUSH 10ML SYR IVF SCH ×2 (09:55→20:54)
[2019-05-18] MEDS: ASPIRIN 81 MG TABLET EC PO SCH (09:55)
[2019-05-18] MEDS: CLOPIDOGREL 75 MG TABLET PO SCH (09:55)
[2019-05-18] MEDS: AMIODARONE 200 MG TABLET PO SCH ×2 (09:55→20:53)
[2019-05-18] MEDS: CARVEDILOL 3.125 MG TABLET PO SCH ×2 (09:55→17:59)
[2019-05-18] MEDS ORDERED: methylPREDNISolone SOD SUCC 125 MG/2 ML IVPush SCH (11:00)
[2019-05-18 13:00] VITALS: BP 108/63
[2019-05-18] MEDS: HEPARIN 25,000 UNITS/500ML PMX 500 ML IV PRN (13:10)
[2019-05-18] MEDS ORDERED: CHOLECALCIFEROL 400 UNITS/ML ORAL SOL PO SCH (16:30)
[2019-05-18] MEDS ORDERED: CHOLECALCIFEROL 400 UNITS TABLET PO SCH (17:08)
[2019-05-18] MEDS: CHOLECALCIFEROL 400 UNITS TABLET PO SCH (17:19)
[2019-05-18] MEDS: methylPREDNISolone SOD SUCC 125 MG/2 ML IVPush SCH ×2 (17:19→23:23)
[2019-05-18] MEDS: ASCORBIC ACID 500 MG TABLET PO SCH (17:20)
[2019-05-18] MEDS: SIMVASTATIN 20 MG TABLET PO SCH (20:54)
[2019-05-18] MEDS: HYDROcodone/APAP 5/325 TABLET PO PRN (20:55)
[2019-05-18 21:03] VITALS: BP 111/70
[2019-05-19 00:16] VITALS: BP 109/68
[2019-05-19] MEDS: ALBUTEROL/IPRATROPIUM 2.5MG/0.5MG, 3 ML NPPB SCH ×4 (02:31→19:22)
[2019-05-19 05:13] LABS: MEAN CORPUSCULAR HEMOGLOBIN 30.9 pg (27.0-34.8); MEAN CORPUSCULAR HGB CONC 32.2 g/dL (32.4-35.8); MEAN PLATELET VOLUME 9.1 fL (7.4-10.4); PLATELET COUNT 268 x10^3/uL (130-400); RED BLOOD COUNT 4.18 x10^6/uL (3.82-5.3); RED CELL DISTRIBUTION WIDTH 13.2 % (9.6-15.2)
[2019-05-19 05:25] LABS: ALBUMIN 2.9 g/dL (3.4-5.0); ANION GAP 5 mmol/L (5-15); CALCIUM 8.6 mg/dL (8.5-10.1); CHLORIDE 99 mmol/L (98-107)
[2019-05-19 05:26] LABS: CREATININE 0.81 mg/dL (0.55-1.02)
[2019-05-19] MEDS: ASPIRIN 81 MG TABLET EC PO SCH (05:43)
[2019-05-19] MEDS: ASCORBIC ACID 500 MG TABLET PO SCH ×2 (05:43→17:58)
[2019-05-19] MEDS: CARVEDILOL 3.125 MG TABLET PO SCH ×2 (05:43→17:58)
[2019-05-19] MEDS: methylPREDNISolone SOD SUCC 125 MG/2 ML IVPush SCH ×4 (05:44→23:27)
[2019-05-19 05:47] VITALS: BP 108/64
[2019-05-19 05:51] LABS: BASOPHILS % (AUTO) 0 % (0-1); EOSINOPHILS % (AUTO) 0 % (1-7); LYMPHOCYTES # (AUTO) 0.45 x10^3/uL (1-3.4); LYMPHOCYTES % (AUTO) 3 % (22-44); MD SCAN; MONOCYTES # (AUTO) 0.21 x10^3/uL (0.2-0.8); MONOCYTES % (AUTO) 2 % (2-9); NEUTROPHILS # (AUTO) 13.54 x10^3/uL (1.8-6.8); NEUTROPHILS % (AUTO) 95 % (42-75)
[2019-05-19] MEDS: BUDESONIDE 0.5 MG/2 ML INHA HHN SCH ×2 (07:00→19:22)
[2019-05-19 08:18] VITALS: BP 94/53
[2019-05-19] MEDS: SODIUM CHLORIDE FLUSH 10ML SYR IVF SCH ×2 (09:00→20:21)
[2019-05-19] MEDS: MULTIVITS,STRESS FORMULA 1 TABLET PO SCH (09:19)
[2019-05-19] MEDS: AMIODARONE 200 MG TABLET PO SCH ×2 (09:19→20:20)
[2019-05-19] MEDS: CLOPIDOGREL 75 MG TABLET PO SCH (09:19)
[2019-05-19 13:21] VITALS: BP 111/61
[2019-05-19] MEDS: CHOLECALCIFEROL 400 UNITS TABLET PO SCH (17:58)
[2019-05-19] MEDS: SIMVASTATIN 20 MG TABLET PO SCH (20:20)
[2019-05-19] MEDS: HYDROcodone/APAP 5/325 TABLET PO PRN (20:21)
[2019-05-19 20:58] VITALS: BP 110/67
[2019-05-20 00:41] VITALS: BP 121/71
[2019-05-20] MEDS: ALBUTEROL/IPRATROPIUM 2.5MG/0.5MG, 3 ML NPPB SCH ×2 (01:59→07:25)
[2019-05-20] MEDS: METHOCARBAMOL 500 MG TABLET PO PRN (03:12)
[2019-05-20 05:28] LABS: ANION GAP 4 mmol/L (5-15); CALCIUM 8.7 mg/dL (8.5-10.1); CHLORIDE 100 mmol/L (98-107); CREATININE 0.84 mg/dL (0.55-1.02)
[2019-05-20 05:29] LABS: MEAN CORPUSCULAR HEMOGLOBIN 30.9 pg (27.0-34.8); MEAN CORPUSCULAR HGB CONC 32.6 g/dL (32.4-35.8); MEAN CORPUSCULAR VOLUME 94.7 fL (80-100); MEAN PLATELET VOLUME 8.5 fL (7.4-10.4); PLATELET COUNT 279 x10^3/uL (130-400); RED BLOOD COUNT 4.06 x10^6/uL (3.82-5.3); RED CELL DISTRIBUTION WIDTH 13.3 % (9.6-15.2)
[2019-05-20] MEDS: CARVEDILOL 3.125 MG TABLET PO SCH (05:46)
[2019-05-20] MEDS: methylPREDNISolone SOD SUCC 125 MG/2 ML IVPush SCH (05:46)
[2019-05-20] MEDS: ASPIRIN 81 MG TABLET EC PO SCH (05:46)
[2019-05-20 05:58] LABS: BASOPHILS # (AUTO) 0.02 x10^3/uL (0-0.1); BASOPHILS % (AUTO) 0 % (0-1); EOSINOPHILS % (AUTO) 0 % (1-7); LYMPHOCYTES # (AUTO) 0.51 x10^3/uL (1-3.4); LYMPHOCYTES % (AUTO) 3 % (22-44); MD SCAN; MONOCYTES # (AUTO) 0.29 x10^3/uL (0.2-0.8); MONOCYTES % (AUTO) 2 % (2-9); NEUTROPHILS # (AUTO) 16.66 x10^3/uL (1.8-6.8); NEUTROPHILS % (AUTO) 95 % (42-75)
[2019-05-20] MEDS: BUDESONIDE 0.5 MG/2 ML INHA HHN SCH (07:25)
[2019-05-20 08:40] VITALS: BP 115/66
[2019-05-20] MEDS: CLOPIDOGREL 75 MG TABLET PO SCH (08:54)
[2019-05-20] MEDS: ASCORBIC ACID 500 MG TABLET PO SCH (08:54)
[2019-05-20] MEDS: AMIODARONE 200 MG TABLET PO SCH (08:54)
[2019-05-20] MEDS: MULTIVITS,STRESS FORMULA 1 TABLET PO SCH (08:54)
[2019-05-20] MEDS: SODIUM CHLORIDE FLUSH 10ML SYR IVF SCH (08:56)
[2019-05-20] MEDS ORDERED: PRED20TA PO (10:20)
== END 2019-05-20 12:05 | disposition home or self-care (01) | DRG 227 ==
LOC: 5SO 16:53 → UNDOADMOB 16:53 → INTOOBSV 16:53 → 5SO 17:12 → INTOOBSV 17:12 → OBSVTOIN 17:12 → DCLOUNGE 05-20 11:56
PROVIDERS: ADMIT Internal Medicine Cardiovascular Disease; ATTEND Internal Medicine Cardiovascular Disease
PROC: 0JPT0PZ Removal of Cardiac Rhythm Related Device from Trunk Subcutaneous Tissue and Fascia, Open Approach (ICD-10-PCS; principal; 2019-05-15)
PROC: 0JH608Z Insertion of Defibrillator Generator into Chest Subcutaneous Tissue and Fascia, Open Approach (ICD-10-PCS; 2019-05-15)
PROC: 02HK3KZ Insertion of Defibrillator Lead into Right Ventricle, Percutaneous Approach (ICD-10-PCS; 2019-05-15)
PROC: 02PA0MZ Removal of Cardiac Lead from Heart, Open Approach (ICD-10-PCS; 2019-05-15)
PROC: 02H63KZ Insertion of Defibrillator Lead into Right Atrium, Percutaneous Approach (ICD-10-PCS; 2019-05-15)
PROC: 5A09357 Assistance with Respiratory Ventilation, Less than 24 Consecutive Hours, Continuous Positive Airway Pressure (ICD-10-PCS; 2019-05-18)
DX: I47.2 Ventricular tachycardia (principal); E46 Unspecified protein-calorie malnutrition; I50.22 Chronic systolic (congestive) heart failure; J44.1 Chronic obstructive pulmonary disease with (acute) exacerbation; I49.01 Ventricular fibrillation; I25.5 Ischemic cardiomyopathy; F17.210 Nicotine dependence, cigarettes, uncomplicated; I08.0 Rheumatic disorders of both mitral and aortic valves; I25.10 Atherosclerotic heart disease of native coronary artery without angina pectoris; I25.2 Old myocardial infarction; Z86.79 Personal history of other diseases of the circulatory system; Z95.5 Presence of coronary angioplasty implant and graft; Z68.24 Body mass index [BMI] 24.0-24.9, adult
CPT/HCPCS: 33263; 36415; 36600; C8929; J3490; J7620; J7626; 71045; 80048; 80053; 80069; 80176; 82803; 83735; 83880; 85025; 85520; 94640; 99156; 99157; C1721; G0378; J0690; J1644; J2250; J3010; Q9957; C8924; J0282; J2930; J7030; J7060

== ENCOUNTER 2019-06-23 08:48 | Inpatient (IN) | payer BC ==
[~2019-06-23] VITALS: Ht 162.6 cm; Wt 60.9 kg
[~2019-06-23 08:48] MED LIST changes: +ALBU18HF INH; +AMIO200T42 PO; +BUDE10.2 INH
[2019-06-23] MEDS: AMIODARONE 150 MG in DEXTROSE 5% 100 ML IV ONE (08:55)
[2019-06-23] MEDS ORDERED: AMIODARONE 900 MG in DEXTROSE 5% 482 ML IV PRN (08:55)
[2019-06-23] MEDS ORDERED: AMIODARONE 50 MG/ML, 3ML ONE (08:57)
[2019-06-23] MEDS ORDERED: MIDAZOLAM 1 MG/ML, 2ML IVPush ONE (09:00)
--- NOTE | 2019-06-23 09:00 | NUR ---
150MG AMIODARONE OVER 10 MINUTES INFUSING NOW.
[2019-06-23] MEDS ORDERED: FENTANYL PF 100 MCG/2ML ONE (09:03)
[2019-06-23] MEDS ORDERED: MIDAZOLAM 1 MG/ML, 2ML ONE (09:03)
[2019-06-23 09:18] LABS: MEAN CORPUSCULAR HEMOGLOBIN 31.2 pg (27.0-34.8); MEAN CORPUSCULAR HGB CONC 32.7 g/dL (32.4-35.8); MEAN CORPUSCULAR VOLUME 95.4 fL (80-100); MEAN PLATELET VOLUME 7.3 fL (7.4-10.4); PLATELET COUNT 448 x10^3/uL (130-400); RED BLOOD COUNT 4.72 x10^6/uL (3.82-5.3); RED CELL DISTRIBUTION WIDTH 14.4 % (9.6-15.2)
--- NOTE | 2019-06-23 09:20 | NUR ---
PATIENT MEDICATED WITH VERSED AND FENTANYL
[2019-06-23 09:26] LABS: INTERNATIONAL NORMALIZED RATIO 1.06 (0.93-1.1); PROTHROMBIN TIME 11.1 Seconds (9.6-11.5)
[2019-06-23 09:27] LABS: ALANINE AMINOTRANSFERASE 46 U/L (12-78); ALBUMIN 3.1 g/dL (3.4-5.0); ANION GAP 6 mmol/L (5-15); CALCIUM 7.9 mg/dL (8.5-10.1); CHLORIDE 100 mmol/L (98-107)
--- NOTE | 2019-06-23 09:28 | NUR ---
PATIENT CARDIOVERTED WITH RETURN TO NSR.
[2019-06-23] MEDS ORDERED: FILTER 0.22 MICRON IV ONE (09:30)
[2019-06-23] MEDS ORDERED: methylPREDNISolone SOD SUCC 125 MG/2 ML IVPush ONE (09:30)
[2019-06-23] MEDS ORDERED: FENTANYL PF 100 MCG/2ML IVPush ONE (09:30)
[2019-06-23] MEDS ORDERED: SODIUM CHLORIDE 0.9%, 500ML IVBOLUS ONE ×3 (09:30→10:30)
--- NOTE | 2019-06-23 09:32 | NUR ---
PATIENT PLACED ON END TITAL CO2 MONITOR.
[2019-06-23 09:33] LABS: ALKALINE PHOSPHATASE 101 U/L (45-117); BILIRUBIN,TOTAL 0.3 mg/dL (0.2-1.0); TOTAL PROTEIN 5.7 g/dL (6.4-8.2)
--- NOTE | 2019-06-23 09:34 | NUR ---
RESPIRATORY IN ROOM.
[2019-06-23] MEDS ORDERED: methylPREDNISolone SOD SUCC 125 MG/2 ML ONE (09:35)
[2019-06-23 09:44] LABS: MD YES
[2019-06-23 09:47] LABS: BAND#(MANUAL) 0.45 x10^3/uL; BANDS%(MANUAL) 2 % (0-7); BASOS#(MANUAL) 0.23 x10^3/uL (0-0.1); BASOS% (MANUAL) 1 % (0-1); LYMPH#(MANUAL) 3.15 x10^3/uL (1-3.4); LYMPHS% (MANUAL) 14 % (22-44); MONOS#(MANUAL) 1.58 x10^3/uL (0.3-2.7); MONOS% (MANUAL) 7 % (2-9); REACTIVE LYMPHS # (MANUAL) 0.68 x10^3/uL (0-0); REACTIVE LYMPHS % (MANUAL) 3 % (0-0); SEG#(MANUAL) 16.43 x10^3/uL (1.8-6.8); SEGS% (MANUAL) 73 % (42-75)
[2019-06-23 09:49] LABS: <PLATELET ESTIMATE> INCREASED; <PLT MORPHOLOGY> NORMAL PLT MORPH; <RBC MORPHOLOGY> NORMAL
--- NOTE | 2019-06-23 10:21 | NUR ---
PATIENT RESTING ON GURNEY ON PHONE. RESPIRATIONS ARE EVEN AND UNLABORED. REPORTS 'FEELING A LOT BETTER". CURRENTLY PACED NSR AT 60BPM.
[2019-06-23] MEDS ORDERED: PIPERACILLIN/TAZO/PMX 3.375GM 50 ML ONE (10:54)
[2019-06-23] MEDS ORDERED: VANCOMYCIN 1,200 MG in SODIUM CHLORIDE 0.9% 250 ML IV ONE (11:00)
[2019-06-23] MEDS ORDERED: VANCOMYCIN PER PHARMACY MC ONE (11:00)
[2019-06-23] MEDS ORDERED: PIPERACILLIN/TAZO/PMX 3.375GM 50 ML IV ONE (11:00)
--- NOTE | 2019-06-23 11:37 | NUR ---
REPORT RECEIVED FROM TEO PETIT. PT IN ROOM 16 NOW.
--- NOTE | 2019-06-23 12:08 | NUR ---
REPORT GIVEN TO MARIAN PETIT.
[2019-06-23] MEDS ORDERED: ACETAMINOPHEN 325 MG TABLET PO PRN (14:00)
[2019-06-23] MEDS ORDERED: POLYETHYLENE GLYCOL 17 GM PACKET PO PRN (14:00)
[2019-06-23] MEDS ORDERED: LORazepam 1MG TABLET PO PRN (14:00)
[2019-06-23] MEDS ORDERED: BISACODYL 10 MG SUPP PR PRN (14:00)
[2019-06-23] MEDS ORDERED: VANCOMYCIN PER PHARMACY MC PRN (14:00)
[2019-06-23] MEDS ORDERED: ONDANSETRON 2MG/ML, 2ML IVPush PRN (14:00)
[2019-06-23] MEDS: methylPREDNISolone SOD SUCC 125 MG/2 ML IVPush SCH ×2 (14:27→19:35)
[2019-06-23] MEDS: ENOXAPARIN 40 MG/0.4 ML SQ SCH (14:27)
[2019-06-23] MEDS ORDERED: PIPERACILLIN/TAZO/PMX 3.375GM 50 ML IV SCH (14:30)
[2019-06-23] MEDS ORDERED: PHARMACOKINETIC MONITORING MC PRN (15:00)
[2019-06-23] MEDS ORDERED: PHARMACOKINETIC CONSULTATION MC ONE (15:00)
[2019-06-23] MEDS ORDERED: AMIO200T42 PO (15:51)
[2019-06-23] MEDS: PIPERACILLIN/TAZO/PMX 3.375GM 50 ML IV SCH ×2 (18:21→22:08)
[2019-06-23 18:51] LABS: MICROSCOPIC INDICATED
[2019-06-23 19:12] LABS: CULTURE INDICATED? NO
[2019-06-23] MEDS: FAMOTIDINE 20 MG TABLET PO SCH (20:42)
[2019-06-23] MEDS: (Budesonide/Formoterol Fumarate (Symbicort 160-4.5 Mcg Inhaler INH SCH (21:00)
[2019-06-23] MEDS ORDERED: TRAZODONE 50MG TABLET PO ONE (21:00)
[2019-06-23] MEDS ORDERED: FAMOTIDINE 20 MG TABLET PO SCH (21:00)
[2019-06-24] MEDS: methylPREDNISolone SOD SUCC 125 MG/2 ML IVPush SCH ×2 (02:06→08:45)
[2019-06-24 04:16] VITALS: BP 94/53
[2019-06-24 04:54] LABS: BASOPHILS % (AUTO) 1 % (0-1); EOSINOPHILS # (AUTO) 0.01 x10^3/uL (0-0.4); EOSINOPHILS % (AUTO) 0 % (1-7); LYMPHOCYTES # (AUTO) 0.79 x10^3/uL (1-3.4); LYMPHOCYTES % (AUTO) 7 % (22-44); MD NO; MEAN CORPUSCULAR HEMOGLOBIN 31.1 pg (27.0-34.8); MEAN CORPUSCULAR HGB CONC 32.9 g/dL (32.4-35.8); MEAN CORPUSCULAR VOLUME 94.5 fL (80-100); MEAN PLATELET VOLUME 7.4 fL (7.4-10.4); MONOCYTES # (AUTO) 0.21 x10^3/uL (0.2-0.8); MONOCYTES % (AUTO) 2 % (2-9); NEUTROPHILS % (AUTO) 90 % (42-75); PLATELET COUNT 162 x10^3/uL (130-400); RED BLOOD COUNT 4.17 x10^6/uL (3.82-5.3); RED CELL DISTRIBUTION WIDTH 14.3 % (9.6-15.2)
[2019-06-24 05:02] LABS: ALBUMIN 2.7 g/dL (3.4-5.0); ANION GAP 4 mmol/L (5-15); CALCIUM 8.4 mg/dL (8.5-10.1); CHLORIDE 105 mmol/L (98-107)
[2019-06-24 05:06] LABS: ALANINE AMINOTRANSFERASE 38 U/L (12-78); ALKALINE PHOSPHATASE 81 U/L (45-117); BILIRUBIN,TOTAL 0.5 mg/dL (0.2-1.0); CREATININE 0.84 mg/dL (0.55-1.02); TOTAL PROTEIN 5.2 g/dL (6.4-8.2)
[2019-06-24] MEDS: ASPIRIN 81 MG TABLET EC PO SCH (05:45)
[2019-06-24] MEDS: PIPERACILLIN/TAZO/PMX 3.375GM 50 ML IV SCH ×4 (05:46→23:12)
[2019-06-24] MEDS: CLOPIDOGREL 75 MG TABLET PO SCH (08:45)
[2019-06-24] MEDS: SENNA/DOCUSATE TABLET PO SCH (08:45)
[2019-06-24] MEDS: (Budesonide/Formoterol Fumarate (Symbicort 160-4.5 Mcg Inhaler INH SCH ×2 (09:52→20:39)
[2019-06-24] MEDS: LISINOPRIL 5 MG TABLET PO SCH (09:55)
[2019-06-24] MEDS: AMIODARONE 200 MG TABLET PO SCH ×2 (09:55→20:38)
[2019-06-24 13:13] VITALS: BP 104/66
[2019-06-24] MEDS: ENOXAPARIN 40 MG/0.4 ML SQ SCH (14:40)
[2019-06-24] MEDS: VANCOMYCIN 1,200 MG in SODIUM CHLORIDE 0.9% 250 ML IV SCH (14:44)
[2019-06-24 17:59] VITALS: BP 106/65
[2019-06-24] MEDS: CARVEDILOL 3.125 MG TABLET PO SCH (18:00)
[2019-06-24 19:49] VITALS: BP 108/63
[2019-06-24] MEDS: FAMOTIDINE 20 MG TABLET PO SCH (20:38)
[2019-06-25] MEDS: ASPIRIN 81 MG TABLET EC PO SCH (05:18)
[2019-06-25] MEDS: CARVEDILOL 3.125 MG TABLET PO SCH ×2 (05:18→17:11)
[2019-06-25] MEDS: PIPERACILLIN/TAZO/PMX 3.375GM 50 ML IV SCH ×3 (05:18→17:14)
[2019-06-25 07:06] VITALS: BP 128/73
[2019-06-25] MEDS: LISINOPRIL 5 MG TABLET PO SCH (08:10)
[2019-06-25] MEDS: SENNA/DOCUSATE TABLET PO SCH (08:10)
[2019-06-25] MEDS: CLOPIDOGREL 75 MG TABLET PO SCH (08:10)
[2019-06-25] MEDS: AMIODARONE 200 MG TABLET PO SCH ×2 (08:10→20:39)
[2019-06-25] MEDS: (Budesonide/Formoterol Fumarate (Symbicort 160-4.5 Mcg Inhaler INH SCH ×2 (08:13→19:44)
[2019-06-25 09:12] LABS: ANION GAP 5 mmol/L (5-15); CALCIUM 8.4 mg/dL (8.5-10.1); CHLORIDE 101 mmol/L (98-107); CREATININE 0.95 mg/dL (0.55-1.02)
[2019-06-25 09:50] LABS: MD YES; MEAN CORPUSCULAR HEMOGLOBIN 30.9 pg (27.0-34.8); MEAN CORPUSCULAR HGB CONC 32.4 g/dL (32.4-35.8); MEAN CORPUSCULAR VOLUME 95.3 fL (80-100); MEAN PLATELET VOLUME 7.2 fL (7.4-10.4); PLATELET COUNT 443 x10^3/uL (130-400); RED BLOOD COUNT 4.72 x10^6/uL (3.82-5.3); RED CELL DISTRIBUTION WIDTH 14.6 % (9.6-15.2)
[2019-06-25 09:52] LABS: <PLATELET ESTIMATE> INCREASED; <PLT MORPHOLOGY> NORMAL PLT MORPH; <RBC MORPHOLOGY> NORMAL; LYMPH#(MANUAL) 0.55 x10^3/uL (1-3.4); LYMPHS% (MANUAL) 3 % (22-44); MONOS#(MANUAL) 0.74 x10^3/uL (0.3-2.7); MONOS% (MANUAL) 4 % (2-9); SEG#(MANUAL) 17.11 x10^3/uL (1.8-6.8); SEGS% (MANUAL) 93 % (42-75)
[2019-06-25 12:30] VITALS: BP 117/78
[2019-06-25] MEDS: VANCOMYCIN 1,200 MG in SODIUM CHLORIDE 0.9% 250 ML IV SCH (13:41)
[2019-06-25] MEDS: ENOXAPARIN 40 MG/0.4 ML SQ SCH (14:46)
[2019-06-25 19:48] VITALS: BP 111/76
[2019-06-25] MEDS: FAMOTIDINE 20 MG TABLET PO SCH (20:38)
[2019-06-26 02:12] VITALS: BP 127/71
[2019-06-26] MEDS: CARVEDILOL 3.125 MG TABLET PO SCH (05:13)
[2019-06-26] MEDS: ASPIRIN 81 MG TABLET EC PO SCH (05:13)
[2019-06-26 05:25] LABS: BASOPHILS # (AUTO) 0.02 x10^3/uL (0-0.1); BASOPHILS % (AUTO) 0 % (0-1); EOSINOPHILS # (AUTO) 0.11 x10^3/uL (0-0.4); EOSINOPHILS % (AUTO) 1 % (1-7); LYMPHOCYTES # (AUTO) 1.09 x10^3/uL (1-3.4); LYMPHOCYTES % (AUTO) 10 % (22-44); MD NO; MEAN CORPUSCULAR HEMOGLOBIN 31.6 pg (27.0-34.8); MEAN CORPUSCULAR HGB CONC 32.9 g/dL (32.4-35.8); MEAN CORPUSCULAR VOLUME 96.1 fL (80-100); MEAN PLATELET VOLUME 7.5 fL (7.4-10.4); MONOCYTES # (AUTO) 0.66 x10^3/uL (0.2-0.8); MONOCYTES % (AUTO) 6 % (2-9); NEUTROPHILS # (AUTO) 8.87 x10^3/uL (1.8-6.8); NEUTROPHILS % (AUTO) 83 % (42-75); PLATELET COUNT 346 x10^3/uL (130-400); RED BLOOD COUNT 4.17 x10^6/uL (3.82-5.3); RED CELL DISTRIBUTION WIDTH 14.6 % (9.6-15.2)
[2019-06-26 05:29] LABS: ALBUMIN 2.6 g/dL (3.4-5.0); CALCIUM 7.9 mg/dL (8.5-10.1); CHLORIDE 103 mmol/L (98-107)
[2019-06-26 05:32] LABS: ANION GAP 3 mmol/L (5-15); CREATININE 0.75 mg/dL (0.55-1.02)
[2019-06-26 07:29] VITALS: BP 118/70
[2019-06-26] MEDS: AMIODARONE 200 MG TABLET PO SCH (07:45)
[2019-06-26] MEDS: CLOPIDOGREL 75 MG TABLET PO SCH (07:45)
[2019-06-26] MEDS: SENNA/DOCUSATE TABLET PO SCH (07:46)
[2019-06-26] MEDS: LISINOPRIL 5 MG TABLET PO SCH (07:46)
[2019-06-26] MEDS ORDERED: LEVO750T26 PO (08:34)
[2019-06-26] MEDS ORDERED: LEVOFLOXACIN 750 MG TABLET PO SCH (09:00)
[2019-06-26] MEDS: (Budesonide/Formoterol Fumarate (Symbicort 160-4.5 Mcg Inhaler INH SCH (09:32)
[2019-06-27] MEDS ORDERED: LEVOFLOXACIN 750 MG TABLET PO SCH (09:00)
== END 2019-06-26 09:50 | disposition home or self-care (01) | DRG 871 ==
LOC: ED 10:47 → EDIP 10:48 → ED 10:55 → CCU 13:32 → 5SO 06-24 11:09 → DCLOUNGE 06-26 09:45
PROVIDERS: ADMIT Internal Medicine; ATTEND Family Medicine
PROC: 5A2204Z Restoration of Cardiac Rhythm, Single (ICD-10-PCS; principal; 2019-06-23)
DX: A41.9 Sepsis, unspecified organism (principal); J18.9 Pneumonia, unspecified organism; J96.21 Acute and chronic respiratory failure with hypoxia; J96.22 Acute and chronic respiratory failure with hypercapnia; R57.0 Cardiogenic shock; I50.23 Acute on chronic systolic (congestive) heart failure; I47.2 Ventricular tachycardia; M48.56XA Collapsed vertebra, not elsewhere classified, lumbar region, initial encounter for fracture; F17.210 Nicotine dependence, cigarettes, uncomplicated; G47.33 Obstructive sleep apnea (adult) (pediatric); I11.0 Hypertensive heart disease with heart failure; I25.10 Atherosclerotic heart disease of native coronary artery without angina pectoris; I25.2 Old myocardial infarction; I25.5 Ischemic cardiomyopathy; J43.9 Emphysema, unspecified; K76.89 Other specified diseases of liver; R65.20 Severe sepsis without septic shock; Z80.9 Family history of malignant neoplasm, unspecified; Z82.49 Family history of ischemic heart disease and other diseases of the circulatory system; Z95.5 Presence of coronary angioplasty implant and graft; Z95.810 Presence of automatic (implantable) cardiac defibrillator; Z99.81 Dependence on supplemental oxygen
CPT/HCPCS: 36415; 71045; 71250; 80053; 80069; 81001; 83605; 83735; 83880; 84145; 85025; 85610; 85730; 87040; 87081; 87205; 93005; 99291; 99292; G0378; J1650; J2250; J2543; J3010; J3370; J0282; J2930; J7040; J7050; J7512

== ENCOUNTER 2019-08-25 14:44 | Emergency (ER) | payer BC, OTHER ==
[~2019-08-25] VITALS: Ht 162.6 cm; Wt 58.0 kg
[~2019-08-25 14:44] MED LIST changes: +LEVO750T26 PO; +SIMV20TA19 PO; -SIMV20TA3 PO; +SIMV40TA20 PO; -SIMV40TA3 PO
[2019-08-25 15:30] LABS: BASOPHILS # (AUTO) 0.03 x10^3/uL (0-0.1); BASOPHILS % (AUTO) 1 % (0-1); EOSINOPHILS # (AUTO) 0.12 x10^3/uL (0-0.4); EOSINOPHILS % (AUTO) 2 % (1-7); LYMPHOCYTES # (AUTO) 1.58 x10^3/uL (1-3.4); LYMPHOCYTES % (AUTO) 21 % (22-44); MD NO; MEAN CORPUSCULAR HEMOGLOBIN 32.2 pg (27.0-34.8); MEAN CORPUSCULAR HGB CONC 33.4 g/dL (32.4-35.8); MEAN CORPUSCULAR VOLUME 96.5 fL (80-100); MEAN PLATELET VOLUME 7.5 fL (7.4-10.4); MONOCYTES # (AUTO) 0.49 x10^3/uL (0.2-0.8); MONOCYTES % (AUTO) 6 % (2-9); NEUTROPHILS % (AUTO) 71 % (42-75); PLATELET COUNT 406 x10^3/uL (130-400); RED BLOOD COUNT 4.83 x10^6/uL (3.82-5.3); RED CELL DISTRIBUTION WIDTH 15.6 % (9.6-15.2)
[2019-08-25 15:39] VITALS: BP 136/58
[2019-08-25 15:40] LABS: ALANINE AMINOTRANSFERASE 25 U/L (12-78); ANION GAP 8 mmol/L (5-15); CALCIUM 8.7 mg/dL (8.5-10.1); CHLORIDE 102 mmol/L (98-107); CREATININE 0.91 mg/dL (0.55-1.02)
[2019-08-25 15:45] LABS: ALKALINE PHOSPHATASE 116 U/L (45-117); BILIRUBIN,TOTAL 0.4 mg/dL (0.2-1.0); TOTAL PROTEIN 7.1 g/dL (6.4-8.2); TROPONIN I < 0.015 ng/mL (0.000-0.045)
--- NOTE | 2019-08-25 15:45 | NUR ---
PT PRESENTING TO ER FOR BACK PAIN 04/09 STARTING SATURDAY, NOTED PT HAS RASPY VOICE THAT STARTED YESTERDAY. PT STS PAIN HASNT DECREASED AT ALL SO SHE CAME TO BE SEEN. CONNECTED TO ALL MONITORING, VSS. TO BEDSIDE FOR ASSESSMENT. IV PLACED, LABS DRAWN. CALL LIGHT WITHIN REACH. AWAITING FURTHER ORDERS
--- NOTE | 2019-08-25 15:58 | NUR ---
ADDITIONAL ORDERS FOR CTA RECEIVED
--- NOTE | 2019-08-25 17:21 | NUR ---
REPORT GIVEN TO HILDA PETIT
--- NOTE | 2019-08-25 17:22 | NUR ---
RECEIVED REPORT FROM ALEK. PT UPRIGHT ON GURNEY AWAKE & COMFORTABLE, RESPONDS APPROP TO STAFF, NO RESP DISTRESS NOTED, NO NEEDS AT THIS TIME, CALL LIGHT WITHIN REACH.
== END 2019-08-25 19:07 | disposition home or self-care (01) ==
LOC: ED 18:45
DX: M54.30 Sciatica, unspecified side (principal); M54.6 Pain in thoracic spine; R06.02 Shortness of breath; I25.2 Old myocardial infarction; J44.9 Chronic obstructive pulmonary disease, unspecified; I44.7 Left bundle-branch block, unspecified
CPT/HCPCS: 36415; 71045; 71275; 80053; 83880; 84484; 85025; 93005; 99285

== ENCOUNTER 2019-09-13 16:00 | Inpatient (IN) | payer BC, OTHER ==
[~2019-09-13] VITALS: Ht 162.6 cm; Wt 58.8 kg
--- NOTE | 2019-09-13 16:00 | NUR ---
63 YR OLD FEMALE ARRIVED VIA EMS. PER REPORT PT WITH INCREASING SOB OVER LAST 2 DAYS. PT USED OWN ALBUTEROL AND TRILOGY MACHINE. PT WAS FOUND TO HAVE SATS 70-75%. PT WAS GIVEN 2 DUONEBS AND PT RECEIVED POSITIVE PRESSURE BVM. PT SPEAKING IN COMPLETE SENTENCES. PT NOT WANTING TO BE INTUBATED. WAS INTUBATED IN MAR. PT RETURNED TO HOME TRILOGY MACHINE. ST PER MONITOR. AUTO BP AND PULSE OX IN PLACE.
--- NOTE | 2019-09-13 16:06 | NUR ---
PT PLACED ON HOME TRILOGY PER REQUEST.
--- NOTE | 2019-09-13 16:18 | NUR ---
HOOF TRIMMER AT BEDSIDE TO DRAW LABS.
[2019-09-13] MEDS ORDERED: SODIUM CHLORIDE FLUSH 10ML SYR IVF ONE (16:30)
[2019-09-13 16:46] LABS: BASOPHILS # (AUTO) 0.05 x10^3/uL (0-0.1); BASOPHILS % (AUTO) 1 % (0-1); EOSINOPHILS # (AUTO) 0.31 x10^3/uL (0-0.4); EOSINOPHILS % (AUTO) 3 % (1-7); LYMPHOCYTES # (AUTO) 3.21 x10^3/uL (1-3.4); LYMPHOCYTES % (AUTO) 31 % (22-44); MD NO; MEAN CORPUSCULAR HEMOGLOBIN 31.4 pg (27.0-34.8); MEAN CORPUSCULAR HGB CONC 32.2 g/dL (32.4-35.8); MEAN CORPUSCULAR VOLUME 97.5 fL (80-100); MEAN PLATELET VOLUME 8.1 fL (7.4-10.4); MONOCYTES # (AUTO) 0.86 x10^3/uL (0.2-0.8); MONOCYTES % (AUTO) 8 % (2-9); NEUTROPHILS # (AUTO) 5.88 x10^3/uL (1.8-6.8); NEUTROPHILS % (AUTO) 57 % (42-75); PLATELET COUNT 399 x10^3/uL (130-400); RED BLOOD COUNT 4.62 x10^6/uL (3.82-5.3); RED CELL DISTRIBUTION WIDTH 14.7 % (9.6-15.2)
--- NOTE | 2019-09-13 16:55 | NUR ---
PT DOZING INTERMITTENTLY, AROUSES EASILY. PT ASKING FOR BLANKET, PROVIDED. STATES "I FEEL BETTER" REMAINS ON HOME TRILOGY MACHINE. NO OTHER NEEDS EXPRESSED AT THIS TIME.
[2019-09-13 17:00] LABS: ALBUMIN 3.7 g/dL (3.4-5.0); ANION GAP 5 mmol/L (5-15); CALCIUM 8.4 mg/dL (8.5-10.1); CHLORIDE 107 mmol/L (98-107); CREATININE 0.95 mg/dL (0.55-1.02)
[2019-09-13 17:04] LABS: TROPONIN I < 0.015 ng/mL (0.000-0.045)
[2019-09-13] MEDS ORDERED: CEFTRIAXONE PMX 1GM/50ML 50 ML IVPB ONE (17:30)
[2019-09-13] MEDS ORDERED: CEFTRIAXONE PMX 1GM/50ML 50 ML ONE (17:38)
--- NOTE | 2019-09-13 17:47 | NUR ---
Abx initiated per order. Pt resting in bed, states "I'm ready to go dancing, I feel great!" Pt denies needs at this time.
--- NOTE | 2019-09-13 18:20 | NUR ---
HOSPITALIST AT BEDSIDE TO EHSAN PT. PT SPEAKING IN COMPLETE SENTENCES. CONT ON HOME TRILOGY MACHINE AT 6L MASK. NO NEEDS EXPRESSED AT THIS TIME.
[2019-09-13] MEDS ORDERED: SODIUM CHLORIDE FLUSH 10ML SYR IVF PRN (18:30)
[2019-09-13] MEDS ORDERED: [UNRECOGNIZED DRUG - REMARK] PO (18:41)
--- NOTE | 2019-09-13 18:51 | NUR ---
PTS SISTER CE ON PHONE. PT GAVE VERBAL PERMISSION TO SPEAK TO HER. UPDATED ON STATUS AND POC.
--- NOTE | 2019-09-13 18:56 | NUR ---
REPORT TO CARMEN PETIT. POC DISCUSSED.
[2019-09-13] MEDS ORDERED: DOCUSATE 100 MG CAPSULE PO PRN (19:00)
[2019-09-13] MEDS ORDERED: hydrALAzine 20 MG/ML, 1ML IVPush PRN (19:00)
[2019-09-13] MEDS ORDERED: ONDANSETRON ODT 4 MG PO PRN (19:00)
[2019-09-13] MEDS ORDERED: LIDODERM 5% PATCH TD PRN (19:00)
[2019-09-13] MEDS ORDERED: ACETAMINOPHEN 325 MG TABLET PO PRN (19:00)
--- NOTE | 2019-09-13 19:03 | NUR ---
PT TOLERATING HER HOME CPAP WELL. PT DENIES CURRENT NEEDS. PT IN GOOD SPIRITS. CALL LIGHT ON LAP.
--- NOTE | 2019-09-13 19:22 | NUR ---
WITH PTS PERMISSION, SPOKE WITH TARIK(PTS FRIEND/ROOMY) AND UPDATED ON POC. SHE REQUESTED TO COME VISIT THE PT IN THE MORNING. NEW VISITING HOUR POLICY DISCUSSED. SHE STATES UNDERSTANDING. SHE DOES REQUEST TO DROP OFF THE PTS PHONE WITH THE ED THIS EVENING ON HER WAY TO WORK. THIS WAS AGREED UPON.
[2019-09-13] MEDS ORDERED: ENOXAPARIN 40 MG/0.4 ML ONE (19:29)
[2019-09-13] MEDS ORDERED: AZITHROMYCIN 500 MG in SODIUM CHLORIDE 0.9% 250 ML IV SCH (19:30)
[2019-09-13] MEDS: ENOXAPARIN 40 MG/0.4 ML SQ SCH (19:55)
--- NOTE | 2019-09-13 20:11 | NUR ---
PT TAKEN OFF HER TRILOGY MACHINE AT THIS TIME WITH OKAY FROM [facility]. PT PLACED ON NC 3LPM.
[2019-09-13 21:01] VITALS: BP 113/72
[2019-09-13] MEDS: TEMAZEPAM 15 MG CAPSULE PO PRN (21:17)
[2019-09-13] MEDS: CARVEDILOL 3.125 MG TABLET PO SCH (21:17)
[2019-09-13] MEDS: ALBUTEROL SULFATE 2.5 MG/3 ML NPPB SCH (22:00)
[2019-09-13] MEDS ORDERED: ALBUTEROL SULFATE 2.5 MG/3 ML NPPB PRN (22:00)
--- NOTE | 2019-09-14 01:22 | NUR ---
CALLED FLOOR RN AND INFORMED HER OTHER STAFF HAD BROUGHT TO PTS BELONGINGS UPSTAIRS AND THIS RN DID NOT GET A CHANCE TO ADD HER LAST MED TO THE MED REC.
[2019-09-14 01:43] VITALS: BP 122/91
[2019-09-14 03:55] VITALS: BP 94/52
[2019-09-14] MEDS ORDERED: MEXI250C PO (03:56)
[2019-09-14 04:42] LABS: BASOPHILS % (AUTO) 0 % (0-1); EOSINOPHILS % (AUTO) 0 % (1-7); LYMPHOCYTES # (AUTO) 0.52 x10^3/uL (1-3.4); LYMPHOCYTES % (AUTO) 8 % (22-44); MD NO; MEAN CORPUSCULAR HEMOGLOBIN 31.6 pg (27.0-34.8); MEAN CORPUSCULAR HGB CONC 32.7 g/dL (32.4-35.8); MEAN CORPUSCULAR VOLUME 96.6 fL (80-100); MEAN PLATELET VOLUME 8.7 fL (7.4-10.4); MONOCYTES # (AUTO) 0.02 x10^3/uL (0.2-0.8); MONOCYTES % (AUTO) 0 % (2-9); NEUTROPHILS # (AUTO) 6.25 x10^3/uL (1.8-6.8); NEUTROPHILS % (AUTO) 92 % (42-75); PLATELET COUNT 291 x10^3/uL (130-400); RED BLOOD COUNT 4.51 x10^6/uL (3.82-5.3); RED CELL DISTRIBUTION WIDTH 15.1 % (9.6-15.2)
[2019-09-14 04:50] LABS: ANION GAP 6 mmol/L (5-15); CALCIUM 8.6 mg/dL (8.5-10.1); CHLORIDE 106 mmol/L (98-107); CREATININE 1.06 mg/dL (0.55-1.02)
[2019-09-14] MEDS: ASPIRIN 81 MG TABLET EC PO SCH (05:08)
[2019-09-14] MEDS: CARVEDILOL 3.125 MG TABLET PO SCH ×2 (05:08→17:25)
[2019-09-14 08:24] VITALS: BP 104/63
[2019-09-14] MEDS: CLOPIDOGREL 75 MG TABLET PO SCH (08:44)
[2019-09-14] MEDS: LISINOPRIL 5 MG TABLET PO SCH (08:44)
[2019-09-14] MEDS: AMIODARONE 200 MG TABLET PO SCH (08:44)
[2019-09-14] MEDS: LIDODERM REMOVE PATCH NOTE XX SCH (08:45)
[2019-09-14] MEDS: GUAIFENESIN ER 600 MG TABLET PO SCH ×2 (10:12→20:25)
[2019-09-14] MEDS: MEXILETINE 150 MG CAPSULE PO SCH ×3 (10:12→20:25)
[2019-09-14] MEDS: AZITHROMYCIN 500 MG TABLET PO SCH (10:12)
[2019-09-14] MEDS: BUDESONIDE 0.5 MG/2 ML INHA NPPB SCH ×2 (11:05→20:18)
[2019-09-14] MEDS: ALBUTEROL SULFATE 2.5 MG/3 ML NPPB SCH ×3 (11:05→20:18)
[2019-09-14 13:46] VITALS: BP 97/52
[2019-09-14 17:25] VITALS: BP 117/74
[2019-09-14] MEDS ORDERED: CEFTRIAXONE PMX 1GM/50ML 50 ML IV SCH (17:30)
[2019-09-14 18:45] VITALS: BP 106/65
[2019-09-14] MEDS: TEMAZEPAM 15 MG CAPSULE PO PRN (20:25)
[2019-09-14] MEDS: ENOXAPARIN 40 MG/0.4 ML SQ SCH (20:26)
[2019-09-15] MEDS: ALBUTEROL SULFATE 2.5 MG/3 ML NPPB SCH ×2 (02:04→10:00)
[2019-09-15 02:19] VITALS: BP 110/68
[2019-09-15 06:00] LABS: ANION GAP 4 mmol/L (5-15); CALCIUM 8.8 mg/dL (8.5-10.1); CHLORIDE 106 mmol/L (98-107); CREATININE 0.87 mg/dL (0.55-1.02)
[2019-09-15 06:09] LABS: BASOPHILS % (AUTO) 0 % (0-1); EOSINOPHILS % (AUTO) 0 % (1-7); LYMPHOCYTES % (AUTO) 9 % (22-44); MD NO; MEAN CORPUSCULAR HEMOGLOBIN 31.7 pg (27.0-34.8); MEAN CORPUSCULAR HGB CONC 32.8 g/dL (32.4-35.8); MEAN CORPUSCULAR VOLUME 96.5 fL (80-100); MEAN PLATELET VOLUME 8.7 fL (7.4-10.4); MONOCYTES # (AUTO) 0.64 x10^3/uL (0.2-0.8); MONOCYTES % (AUTO) 6 % (2-9); NEUTROPHILS # (AUTO) 9.09 x10^3/uL (1.8-6.8); NEUTROPHILS % (AUTO) 86 % (42-75); PLATELET COUNT 267 x10^3/uL (130-400); RED BLOOD COUNT 3.84 x10^6/uL (3.82-5.3); RED CELL DISTRIBUTION WIDTH 15.1 % (9.6-15.2)
[2019-09-15 06:22] VITALS: BP 110/62
[2019-09-15] MEDS: ASPIRIN 81 MG TABLET EC PO SCH (06:27)
[2019-09-15] MEDS: CARVEDILOL 3.125 MG TABLET PO SCH (06:27)
[2019-09-15] MEDS ORDERED: AZIT500T10 PO (08:52)
[2019-09-15] MEDS ORDERED: BUDE10.2 INH (08:52)
[2019-09-15] MEDS ORDERED: PRED20TA PO (08:52)
[2019-09-15] MEDS: LISINOPRIL 5 MG TABLET PO SCH (09:01)
[2019-09-15] MEDS: GUAIFENESIN ER 600 MG TABLET PO SCH (09:01)
[2019-09-15] MEDS: AZITHROMYCIN 500 MG TABLET PO SCH (09:01)
[2019-09-15] MEDS: CLOPIDOGREL 75 MG TABLET PO SCH (09:01)
[2019-09-15] MEDS: MEXILETINE 150 MG CAPSULE PO SCH (09:01)
[2019-09-15] MEDS: AMIODARONE 200 MG TABLET PO SCH (09:01)
[2019-09-15] MEDS: LIDODERM REMOVE PATCH NOTE XX SCH (09:02)
[2019-09-15] MEDS: BUDESONIDE 0.5 MG/2 ML INHA NPPB SCH (10:00)
== END 2019-09-15 11:18 | disposition home or self-care (01) | DRG 189 ==
LOC: ED 18:14 → EDIP 18:47 → 4EST 20:50
PROVIDERS: ADMIT Family Medicine; ATTEND Family Medicine
PROC: 5A09357 Assistance with Respiratory Ventilation, Less than 24 Consecutive Hours, Continuous Positive Airway Pressure (ICD-10-PCS; principal; 2019-09-13)
PROC: 5A09357 Assistance with Respiratory Ventilation, Less than 24 Consecutive Hours, Continuous Positive Airway Pressure (ICD-10-PCS; 2019-09-15)
DX: J96.21 Acute and chronic respiratory failure with hypoxia (principal); I50.22 Chronic systolic (congestive) heart failure; J43.9 Emphysema, unspecified; G47.33 Obstructive sleep apnea (adult) (pediatric); I11.0 Hypertensive heart disease with heart failure; I25.10 Atherosclerotic heart disease of native coronary artery without angina pectoris; I25.5 Ischemic cardiomyopathy; I25.2 Old myocardial infarction; Z86.79 Personal history of other diseases of the circulatory system; Z87.891 Personal history of nicotine dependence; Z95.810 Presence of automatic (implantable) cardiac defibrillator; Z95.5 Presence of coronary angioplasty implant and graft; Z82.49 Family history of ischemic heart disease and other diseases of the circulatory system; Z80.9 Family history of malignant neoplasm, unspecified; Z79.899 Other long term (current) drug therapy
CPT/HCPCS: 36415; 36600; 84145; 99285; J7613; J7626; 71045; 80048; 82040; 82803; 83605; 84484; 85025; 87040; 93005; 94640; G0378; J0456; J0696; J1650; J7050; J7512

== ENCOUNTER 2019-10-07 12:53 | Outpatient (CLI) | payer OTHER ==
[~2019-10-07 12:53] MED LIST changes: +AZIT500T10 PO; +MEXI250C PO; +[UNRECOGNIZED DRUG - REMARK] PO
[2019-10-07 13:30] LABS: BASOPHILS # (AUTO) 0.04 x10^3/uL (0-0.1); BASOPHILS % (AUTO) 0 % (0-1); EOSINOPHILS # (AUTO) 0.28 x10^3/uL (0-0.4); EOSINOPHILS % (AUTO) 3 % (1-7); LYMPHOCYTES # (AUTO) 1.91 x10^3/uL (1-3.4); LYMPHOCYTES % (AUTO) 19 % (22-44); MD NO; MEAN CORPUSCULAR HEMOGLOBIN 31.5 pg (27.0-34.8); MEAN CORPUSCULAR HGB CONC 32.4 g/dL (32.4-35.8); MEAN CORPUSCULAR VOLUME 97.1 fL (80-100); MEAN PLATELET VOLUME 7.6 fL (7.4-10.4); MONOCYTES # (AUTO) 0.66 x10^3/uL (0.2-0.8); MONOCYTES % (AUTO) 7 % (2-9); NEUTROPHILS # (AUTO) 7.15 x10^3/uL (1.8-6.8); NEUTROPHILS % (AUTO) 71 % (42-75); PLATELET COUNT 429 x10^3/uL (130-400); RED BLOOD COUNT 4.81 x10^6/uL (3.82-5.3); RED CELL DISTRIBUTION WIDTH 14.4 % (9.6-15.2)
[2019-10-07 13:40] LABS: ALANINE AMINOTRANSFERASE 60 U/L (12-78); ALBUMIN 3.8 g/dL (3.4-5.0); ANION GAP 3 mmol/L (5-15); CALCIUM 9.1 mg/dL (8.5-10.1); CHLORIDE 101 mmol/L (98-107); CREATININE 0.95 mg/dL (0.55-1.02)
[2019-10-07 13:43] LABS: ALKALINE PHOSPHATASE 171 U/L (45-117); BILIRUBIN,TOTAL 0.4 mg/dL (0.2-1.0)
== END 2019-10-07 23:59 | disposition home or self-care (01) ==
LOC: RAD 12:53
PROVIDERS: ATTEND Physician Assistant
DX: M85.88 Other specified disorders of bone density and structure, other site (principal); M47.814 Spondylosis without myelopathy or radiculopathy, thoracic region; I70.0 Atherosclerosis of aorta
CPT/HCPCS: 36415; 72128; 80053; 85025

== ENCOUNTER 2019-10-11 16:22 | Emergency (ER) | payer OTHER ==
[~2019-10-11] VITALS: Ht 162.6 cm; Wt 58.0 kg
--- NOTE | 2019-10-11 16:41 | NUR ---
PT CAME IN CO OF SOB X 2 DAYS. PT IS USUALLY ON 2 LITERS VIA NC ALL THE TIME. "I WAS FEELING SOB AND MY PULSE OX WAS SAYING I WAS INTHE LOW 80S SO I TURNED UP MY O2 TO 4 LITERS AND I STILL WAS ONLY IN THE 80S". PT IS CURRENTLY 96% ON HER NORMAL 2 LITERS AND IS RESTING IN [facility]. MD IS BEDSIDE. PT IS CONNECTED TO REAL ESTATE MANAGER. HX OF COPD
[2019-10-11] MEDS ORDERED: methylPREDNISolone SOD SUCC 125 MG/2 ML ONE (16:49)
[2019-10-11] MEDS ORDERED: methylPREDNISolone SOD SUCC 125 MG/2 ML IV ONE (17:00)
[2019-10-11] MEDS ORDERED: SODIUM CHLORIDE FLUSH 10ML SYR IVF ONE (17:00)
--- NOTE | 2019-10-11 17:01 | NUR ---
CHERYL DID EKG
[2019-10-11 17:35] LABS: ALBUMIN 4.1 g/dL (3.4-5.0); ANION GAP 5 mmol/L (5-15); CALCIUM 9.1 mg/dL (8.5-10.1); CHLORIDE 102 mmol/L (98-107); CREATININE 1.01 mg/dL (0.55-1.02)
[2019-10-11 17:38] LABS: TROPONIN I < 0.015 ng/mL (0.000-0.045)
[2019-10-11 17:39] LABS: BASOPHILS # (AUTO) 0.06 x10^3/uL (0-0.1); BASOPHILS % (AUTO) 1 % (0-1); EOSINOPHILS # (AUTO) 0.55 x10^3/uL (0-0.4); EOSINOPHILS % (AUTO) 4 % (1-7); LYMPHOCYTES # (AUTO) 2.69 x10^3/uL (1-3.4); LYMPHOCYTES % (AUTO) 21 % (22-44); MD NO; MEAN CORPUSCULAR HEMOGLOBIN 31.4 pg (27.0-34.8); MEAN CORPUSCULAR HGB CONC 32.7 g/dL (32.4-35.8); MEAN CORPUSCULAR VOLUME 96.2 fL (80-100); MEAN PLATELET VOLUME 8.2 fL (7.4-10.4); MONOCYTES # (AUTO) 1.04 x10^3/uL (0.2-0.8); MONOCYTES % (AUTO) 8 % (2-9); NEUTROPHILS # (AUTO) 8.55 x10^3/uL (1.8-6.8); NEUTROPHILS % (AUTO) 66 % (42-75); PLATELET COUNT 437 x10^3/uL (130-400); RED BLOOD COUNT 5.02 x10^6/uL (3.82-5.3); RED CELL DISTRIBUTION WIDTH 14.3 % (9.6-15.2)
--- NOTE | 2019-10-11 18:00 | NUR ---
Break RN note: Pt resting in bed, NADN, denies needs. Pt speaking in full sentences, resp even and unlabored.
[2019-10-11 18:55] VITALS: BP 114/78
--- NOTE | 2019-10-11 18:55 | NUR ---
PT TO BE DC. AWAITING RIDE HOME.
== END 2019-10-11 19:21 | disposition home or self-care (01) ==
LOC: ED 16:35
DX: J44.1 Chronic obstructive pulmonary disease with (acute) exacerbation (principal); R94.31 Abnormal electrocardiogram [ECG] [EKG]; I11.0 Hypertensive heart disease with heart failure; I50.9 Heart failure, unspecified; I25.10 Atherosclerotic heart disease of native coronary artery without angina pectoris; I25.2 Old myocardial infarction; Z95.0 Presence of cardiac pacemaker; Z87.891 Personal history of nicotine dependence
CPT/HCPCS: 36415; 71045; 80048; 82040; 83605; 83880; 84484; 85025; 93005; 96374; 99285; J2930

== ENCOUNTER 2019-10-22 08:33 | Inpatient (IN) | payer OTHER ==
[~2019-10-22] VITALS: Ht 162.6 cm; Wt 64.8 kg
--- NOTE | 2019-10-22 08:38 | NUR ---
pt arrived on cpap. ekg at the bedside
[2019-10-22] MEDS ORDERED: PROPOFOL 100 ML IV ONE (08:44)
[2019-10-22] MEDS ORDERED: SUCCINYLCHOLINE 20 MG/ML, 10ML IVPush ONE (09:30)
[2019-10-22] MEDS ORDERED: AZITHROMYCIN 500 MG in SODIUM CHLORIDE 0.9% 250 ML IV ONE (09:30)
[2019-10-22] MEDS ORDERED: SODIUM CHLORIDE FLUSH 10ML SYR IVF ONE (09:30)
[2019-10-22] MEDS ORDERED: ETOMIDATE 20 MG/10 ML IVPush ONE (09:30)
[2019-10-22] MEDS ORDERED: ALBUTEROL SULFATE 2.5 MG/3 ML NPPB ONE (10:00)
[2019-10-22] MEDS ORDERED: FENTANYL PF 100 MCG/2ML ONE (10:02)
[2019-10-22 10:10] LABS: MEAN CORPUSCULAR HEMOGLOBIN 33.2 pg (27.0-34.8); MEAN CORPUSCULAR HGB CONC 33.9 g/dL (32.4-35.8); MEAN PLATELET VOLUME 7.9 fL (7.4-10.4); PLATELET COUNT 432 x10^3/uL (130-400); RED BLOOD COUNT 4.71 x10^6/uL (3.82-5.3); RED CELL DISTRIBUTION WIDTH 14.6 % (9.6-15.2)
--- NOTE | 2019-10-22 10:10 | NUR ---
Pt BIB JAMAL on CPAP for difficulty breathing & SOB. Pt states that her SOB had worsened overnight. Pt has history of past intubations, presumably d/t COPD. Pt speaking in 1 word sentences, tripoding and using accessory muscles upon arrival w/ CPAP. Medics had hepafilter in place on CPAP. Uponal arrival Jeffrey Bola at for eval and to discuss POC, pt emergently intubated d/t RESP distress, pt verbally confirmed procedure was ok to proceed. RT at BS. Intubation began at 0850 Etomidate @ 0851 Succ @ 0852 7.0 ETT, 21 @ teeth completed @ 0857 Urine and blood collected and sent to lab, pt P/W/D, resting on gurney, soft restraints applied to wrists, johnson inserted, rectal temp prob inserted, NG inserted. Pt on monitor and currently NAD on ventilator. WCTM. waiting for lab results. Addendum: 10/22/19 at 1218 by ZANDRA CO2 color changed seen at 0853, intubation finished at 0853
[2019-10-22] MEDS ORDERED: FENTANYL PF 100 MCG/2ML IVPush ONE (10:30)
[2019-10-22 10:33] LABS: MD YES
[2019-10-22 10:35] LABS: BANDS%(MANUAL) 1 % (0-7); LYMPH#(MANUAL) 1.98 x10^3/uL (1-3.4); LYMPHS% (MANUAL) 10 % (22-44); MONOS% (MANUAL) 1 % (2-9); SEG#(MANUAL) 17.42 x10^3/uL (1.8-6.8); SEGS% (MANUAL) 88 % (42-75)
[2019-10-22 10:36] LABS: <PLATELET ESTIMATE> ADEQUATE; <PLT MORPHOLOGY> NORMAL PLT MORPH; <RBC MORPHOLOGY> NORMAL
--- NOTE | 2019-10-22 10:45 | NUR ---
RN at bs, pt lex mosley, P/W/D, pt tolerating vent well, NAD, appears calm, eyes closed, no longer coughing over vent. Intervention: medicated per MAR for FLACC discomfort, pt FLACC score decreased.
[2019-10-22 10:59] LABS: ALBUMIN 3.1 g/dL (3.4-5.0); ANION GAP 14 mmol/L (5-15); CALCIUM 7.8 mg/dL (8.5-10.1); CHLORIDE 98 mmol/L (98-107)
[2019-10-22] MEDS ORDERED: PROPOFOL 100 ML IV PRN ×2 (11:01→12:10)
[2019-10-22 11:04] LABS: ALKALINE PHOSPHATASE 125 U/L (45-117); BILIRUBIN,TOTAL 0.5 mg/dL (0.2-1.0); CREATININE 0.98 mg/dL (0.55-1.02); TOTAL PROTEIN 6.4 g/dL (6.4-8.2)
--- NOTE | 2019-10-22 11:04 | NUR ---
RN at , pt resting in [facility], MD JIA notified of pt BP titrating pt down on prop. P/W/D, on monitor, appears comfortable, WCTM.
[2019-10-22] MEDS ORDERED: SODIUM CHLORIDE 0.9% 1,000ML IVBOLUS ONE (11:30)
[2019-10-22 11:35] LABS: MICROSCOPIC INDICATED
[2019-10-22 11:38] LABS: ALANINE AMINOTRANSFERASE 96 U/L (12-78)
[2019-10-22 11:48] LABS: CULTURE INDICATED? NO
--- NOTE | 2019-10-22 11:51 | NUR ---
Report called to MARISABEL Woodall by preceptee MARISABEL Toro requesting that pt remain in ED until after ICU MD has evaluated pt. Pt resting comfortably on gurney, indicating that she would like a mouth swab. RN to retrieve swabs, pt reports no other needs at this time. pt communicating through writing & hand gestures. WCTM.
--- NOTE | 2019-10-22 12:02 | NUR ---
Report called to Talisha RN in ICU pt to be transferred shortly. Pt resting comfortably in gurney, tolerating vent and sed well, NAD, given oral swab sticks for comfort, RESP WNL on vent, call light in hand, VSS, given blanket for comfort, denies additional needs at this time, WCTM.
[2019-10-22] MEDS ORDERED: NOREPINEPHRINE 8 MG in SODIUM CHLORIDE 0.9% 242 ML IV PRN (12:10)
[2019-10-22] MEDS ORDERED: clotrimazole (12:15)
[2019-10-22] MEDS ORDERED: simvastatin (12:15)
[2019-10-22] MEDS ORDERED: lasix (12:16)
[2019-10-22] MEDS ORDERED: MIDAZOLAM 1 MG/ML, 2ML IVPush PRN (12:30)
[2019-10-22] MEDS ORDERED: PHARMACY MAY ADJ FOR RENAL FX MC SCH (12:30)
[2019-10-22] MEDS ORDERED: SENNA 176 MG/5 ML ORAL SOL NG PRN (12:30)
[2019-10-22] MEDS ORDERED: DEXTROSE 50%, 50ML SYRINGE IVPush PRN (12:30)
[2019-10-22] MEDS ORDERED: GLUCAGON 1 MG IM PRN (12:30)
[2019-10-22] MEDS ORDERED: ZINC SULFATE 220 MG CAPSULE PO SCH (12:30)
[2019-10-22] MEDS ORDERED: SENNA/DOCUSATE TABLET NG PRN (12:30)
[2019-10-22] MEDS ORDERED: BISACODYL 10 MG SUPP PR PRN (12:30)
[2019-10-22] MEDS ORDERED: PHARMACY MAY ADJ FOR RENAL FX MC PRN (12:30)
[2019-10-22] MEDS ORDERED: DEXTROSE 4 GM TAB.CHEW PO PRN (12:30)
[2019-10-22] MEDS ORDERED: LIDOCAINE-MPF 1%, 2ML ENDO PRN (12:30)
[2019-10-22] MEDS ORDERED: ASCORBIC ACID 500 MG TABLET PO SCH (12:30)
[2019-10-22] MEDS ORDERED: ONDANSETRON 2MG/ML, 2ML IV PRN (12:30)
[2019-10-22] MEDS: CEFTRIAXONE PMX 2GM/50ML 50 ML IV SCH (12:30)
[2019-10-22] MEDS: AZITHROMYCIN 500 MG in SODIUM CHLORIDE 0.9% 250 ML IV SCH (12:30)
[2019-10-22] MEDS ORDERED: CHOLECALCIFEROL 5,000u TAB PO SCH (12:30)
[2019-10-22] MEDS ORDERED: LACTULOSE 20 GM/30 ML UDC NG PRN (12:30)
[2019-10-22] MEDS ORDERED: ACETAMINOPHEN 650 MG/20.3 ML UDC PO/NG PRN (12:30)
[2019-10-22] MEDS: ALBUTEROL/IPRATROPIUM 2.5MG/0.5MG, 3 ML INLINE SCH ×4 (12:30→22:00)
[2019-10-22] MEDS ORDERED: FENTANYL PF 100 MCG/2ML IVPush PRN (12:30)
--- NOTE | 2019-10-22 12:49 | NUR ---
Pt resting comfortably in gurney, tolerating vent and sed well, NAD, RESP WNL on vent, VSS, denies additional needs at this time, WCTM. Pt to be transferred to ICU at this time, care being transferred to Talisha PETIT
[2019-10-22 13:50] LABS: TROPONIN I 0.098 ng/mL (0.000-0.045)
[2019-10-22 13:53] LABS: TRIGLYCERIDES 3233 mg/dL (50-200)
[2019-10-22] MEDS ORDERED: PLAQUENIL 200MG/8ML ORAL SUSP PO SCH (14:00)
[2019-10-22] MEDS: FAMOTIDINE 20 MG/2 ML IV SCH (14:14)
[2019-10-22] MEDS: HEPARIN 5,000 UNITS/ML, 1ML SQ SCH ×2 (14:14→21:37)
[2019-10-22] MEDS: methylPREDNISolone SOD SUCC 40 MG/ML IV SCH (15:42)
[2019-10-22 17:02] LABS: TROPONIN I 0.508 ng/mL (0.000-0.045)
[2019-10-22] MEDS ORDERED: SODIUM CHLORIDE 0.9%, 500ML IVBOLUS ONE (18:30)
[2019-10-22] MEDS: SODIUM CHLORIDE FLUSH 10ML SYR IVF SCH (21:00)
[2019-10-22] MEDS: BUDESONIDE 0.5 MG/2 ML INHA INH SCH (22:00)
[2019-10-23] MEDS: FAMOTIDINE 20 MG/2 ML IV SCH ×2 (01:57→13:24)
[2019-10-23] MEDS: methylPREDNISolone SOD SUCC 40 MG/ML IV SCH ×2 (01:57→13:08)
[2019-10-23 02:20] VITALS: BP 82/50
[2019-10-23] MEDS: ALBUTEROL/IPRATROPIUM 2.5MG/0.5MG, 3 ML INLINE SCH ×2 (02:31→07:00)
[2019-10-23] MEDS: HEPARIN 5,000 UNITS/ML, 1ML SQ SCH ×3 (04:22→20:31)
[2019-10-23 06:30] LABS: BASOPHILS # (AUTO) 0.03 x10^3/uL (0-0.1); BASOPHILS % (AUTO) 0 % (0-1); EOSINOPHILS % (AUTO) 0 % (1-7); LYMPHOCYTES # (AUTO) 0.62 x10^3/uL (1-3.4); LYMPHOCYTES % (AUTO) 4 % (22-44); MD NO; MEAN CORPUSCULAR HEMOGLOBIN 31.1 pg (27.0-34.8); MEAN CORPUSCULAR HGB CONC 32.4 g/dL (32.4-35.8); MEAN PLATELET VOLUME 7.6 fL (7.4-10.4); MONOCYTES # (AUTO) 0.25 x10^3/uL (0.2-0.8); MONOCYTES % (AUTO) 2 % (2-9); NEUTROPHILS # (AUTO) 14.71 x10^3/uL (1.8-6.8); NEUTROPHILS % (AUTO) 94 % (42-75); PLATELET COUNT 372 x10^3/uL (130-400); RED BLOOD COUNT 4.22 x10^6/uL (3.82-5.3); RED CELL DISTRIBUTION WIDTH 13.9 % (9.6-15.2)
[2019-10-23 06:44] LABS: ALBUMIN 2.8 g/dL (3.4-5.0); ANION GAP 7 mmol/L (5-15); CALCIUM 8.5 mg/dL (8.5-10.1); CHLORIDE 105 mmol/L (98-107)
[2019-10-23 06:49] LABS: ALANINE AMINOTRANSFERASE 67 U/L (12-78); ALKALINE PHOSPHATASE 105 U/L (45-117); BILIRUBIN,TOTAL 0.2 mg/dL (0.2-1.0); C-REACTIVE PROTEIN, QUANT 0.04 mg/dL (0.02-0.49); CHOL/HDL RATIO 2.3; CHOLESTEROL, TOTAL 142 mg/dL (140-239); CREATININE 0.78 mg/dL (0.55-1.02); HDL CHOL % 44 % (28-40); HDL CHOLESTEROL (DIRECT) 63 mg/dL (40-60); LDL CHOLESTEROL,CALCULATED 51 mg/dL (54-169); LDL/HDL RATIO 0.8 (0.5-3.0); TOTAL PROTEIN 5.6 g/dL (6.4-8.2); TRIGLYCERIDES 141 mg/dL (50-200); VLDL CHOLESTEROL 28 mg/dL (0-25)
[2019-10-23] MEDS ORDERED: PLAQUENIL 200MG/8ML ORAL SUSP PO SCH (09:00)
[2019-10-23] MEDS: BUDESONIDE 0.5 MG/2 ML INHA INH SCH (09:00)
[2019-10-23] MEDS: CLOPIDOGREL 75 MG TABLET PO SCH (09:21)
[2019-10-23] MEDS: AMIODARONE 200 MG TABLET PO SCH (09:21)
[2019-10-23 10:51] LABS: TROPONIN I 0.285 ng/mL (0.000-0.045)
[2019-10-23] MEDS: SODIUM CHLORIDE FLUSH 10ML SYR IVF SCH ×2 (11:44→21:01)
[2019-10-23] MEDS: CEFTRIAXONE PMX 2GM/50ML 50 ML IV SCH (11:45)
[2019-10-23] MEDS ORDERED: FLUTICASONE/VILANTEROL 200-25MCG/INH INH SCH (12:30)
[2019-10-23] MEDS ORDERED: ALBUTEROL HFA 90 MCG/SPRAY INH PRN (13:00)
[2019-10-23] MEDS: MEXILETINE 150 MG CAPSULE PO SCH ×2 (13:07→20:31)
[2019-10-23] MEDS: AZITHROMYCIN 500 MG in SODIUM CHLORIDE 0.9% 250 ML IV SCH (13:09)
[2019-10-23] MEDS: TIOTROPIUM INH SCH (13:25)
[2019-10-23] MEDS ORDERED: SODIUM CHLORIDE 0.9% 250 ML IV SCH (17:00)
[2019-10-23] MEDS: CARVEDILOL 3.125 MG TABLET PO SCH (17:10)
[2019-10-23] MEDS: ALBUTEROL HFA 90 MCG/SPRAY INH PRN (21:00)
[2019-10-24] MEDS: FAMOTIDINE 20 MG TABLET PO SCH ×3 (01:39→21:13)
[2019-10-24] MEDS: methylPREDNISolone SOD SUCC 40 MG/ML IV SCH ×2 (01:39→13:09)
[2019-10-24] MEDS: CARVEDILOL 3.125 MG TABLET PO SCH ×2 (05:06→17:19)
[2019-10-24] MEDS: MEXILETINE 150 MG CAPSULE PO SCH ×3 (05:06→21:13)
[2019-10-24] MEDS: HEPARIN 5,000 UNITS/ML, 1ML SQ SCH ×3 (05:06→21:13)
[2019-10-24 06:27] LABS: BASOPHILS # (AUTO) 0.01 x10^3/uL (0-0.1); BASOPHILS % (AUTO) 0 % (0-1); EOSINOPHILS % (AUTO) 0 % (1-7); LYMPHOCYTES # (AUTO) 0.51 x10^3/uL (1-3.4); LYMPHOCYTES % (AUTO) 4 % (22-44); MD NO; MEAN CORPUSCULAR HGB CONC 32.3 g/dL (32.4-35.8); MEAN CORPUSCULAR VOLUME 96.1 fL (80-100); MEAN PLATELET VOLUME 7.5 fL (7.4-10.4); MONOCYTES # (AUTO) 0.32 x10^3/uL (0.2-0.8); MONOCYTES % (AUTO) 2 % (2-9); NEUTROPHILS # (AUTO) 13.74 x10^3/uL (1.8-6.8); NEUTROPHILS % (AUTO) 94 % (42-75); PLATELET COUNT 335 x10^3/uL (130-400); RED BLOOD COUNT 3.93 x10^6/uL (3.82-5.3); RED CELL DISTRIBUTION WIDTH 14.3 % (9.6-15.2)
[2019-10-24 06:37] LABS: ANION GAP 4 mmol/L (5-15); C-REACTIVE PROTEIN, QUANT < 0.02 mg/dL (0.02-0.49); CALCIUM 8.4 mg/dL (8.5-10.1); CHLORIDE 103 mmol/L (98-107); CREATININE 0.75 mg/dL (0.55-1.02)
[2019-10-24] MEDS: SODIUM CHLORIDE FLUSH 10ML SYR IVF SCH ×2 (07:59→21:13)
[2019-10-24] MEDS: CLOPIDOGREL 75 MG TABLET PO SCH (08:01)
[2019-10-24] MEDS: AMIODARONE 200 MG TABLET PO SCH (08:01)
[2019-10-24] MEDS: FLUTICASONE/VILANTEROL 200-25MCG/INH INH SCH (09:00)
[2019-10-24] MEDS: TIOTROPIUM INH SCH (09:01)
[2019-10-24] MEDS: CEFTRIAXONE PMX 2GM/50ML 50 ML IV SCH (11:29)
[2019-10-24] MEDS: AZITHROMYCIN 500 MG in SODIUM CHLORIDE 0.9% 250 ML IV SCH (13:02)
[2019-10-24 17:21] VITALS: BP 120/72
[2019-10-24 21:18] VITALS: BP 128/69
[2019-10-24] MEDS: ALBUTEROL HFA 90 MCG/SPRAY INH PRN (21:20)
[2019-10-25 01:47] VITALS: BP 123/73
[2019-10-25] MEDS: methylPREDNISolone SOD SUCC 40 MG/ML IV SCH ×2 (01:49→14:18)
[2019-10-25] MEDS: CARVEDILOL 3.125 MG TABLET PO SCH ×2 (05:04→16:52)
[2019-10-25] MEDS: MEXILETINE 150 MG CAPSULE PO SCH ×3 (05:04→20:44)
[2019-10-25] MEDS: HEPARIN 5,000 UNITS/ML, 1ML SQ SCH ×3 (05:05→20:44)
[2019-10-25 06:24] LABS: MEAN CORPUSCULAR HEMOGLOBIN 31.4 pg (27.0-34.8); MEAN CORPUSCULAR HGB CONC 33.2 g/dL (32.4-35.8); MEAN CORPUSCULAR VOLUME 94.4 fL (80-100); MEAN PLATELET VOLUME 7.7 fL (7.4-10.4); PLATELET COUNT 319 x10^3/uL (130-400); RED BLOOD COUNT 4.14 x10^6/uL (3.82-5.3); RED CELL DISTRIBUTION WIDTH 14.5 % (9.6-15.2)
[2019-10-25 06:26] LABS: ANION GAP 5 mmol/L (5-15); CALCIUM 8.7 mg/dL (8.5-10.1); CHLORIDE 101 mmol/L (98-107)
[2019-10-25 06:28] LABS: CREATININE 0.86 mg/dL (0.55-1.02); TRIGLYCERIDES 116 mg/dL (50-200)
[2019-10-25 06:29] LABS: C-REACTIVE PROTEIN, QUANT < 0.02 mg/dL (0.02-0.49)
[2019-10-25 06:50] LABS: BASOPHILS # (AUTO) 0.02 x10^3/uL (0-0.1); BASOPHILS % (AUTO) 0 % (0-1); EOSINOPHILS # (AUTO) 0.03 x10^3/uL (0-0.4); EOSINOPHILS % (AUTO) 0 % (1-7); LYMPHOCYTES # (AUTO) 0.39 x10^3/uL (1-3.4); LYMPHOCYTES % (AUTO) 2 % (22-44); MD SCAN; MONOCYTES # (AUTO) 0.32 x10^3/uL (0.2-0.8); MONOCYTES % (AUTO) 2 % (2-9); NEUTROPHILS # (AUTO) 16.98 x10^3/uL (1.8-6.8); NEUTROPHILS % (AUTO) 96 % (42-75)
[2019-10-25] MEDS: FAMOTIDINE 20 MG TABLET PO SCH ×2 (08:40→20:43)
[2019-10-25] MEDS: CLOPIDOGREL 75 MG TABLET PO SCH (08:40)
[2019-10-25] MEDS: AMIODARONE 200 MG TABLET PO SCH (08:40)
[2019-10-25] MEDS: SODIUM CHLORIDE FLUSH 10ML SYR IVF SCH ×2 (08:40→20:45)
[2019-10-25] MEDS: TIOTROPIUM INH SCH (08:47)
[2019-10-25 08:57] VITALS: BP 146/84
[2019-10-25] MEDS: FLUTICASONE/VILANTEROL 200-25MCG/INH INH SCH (09:00)
[2019-10-25] MEDS: AZITHROMYCIN 500 MG in SODIUM CHLORIDE 0.9% 250 ML IV SCH (12:02)
[2019-10-25] MEDS: CEFTRIAXONE PMX 2GM/50ML 50 ML IV SCH (12:02)
[2019-10-25 13:50] VITALS: BP 119/73
[2019-10-25] MEDS ORDERED: LIDODERM 5% PATCH TD PRN (14:30)
[2019-10-25] MEDS ORDERED: LIDODERM 5% PATCH TD ONE (14:46)
[2019-10-25] MEDS: HYDROcodone/APAP 5/325 TABLET PO PRN (16:52)
[2019-10-25 20:47] VITALS: BP 129/75
[2019-10-26] MEDS: HYDROcodone/APAP 5/325 TABLET PO PRN ×4 (01:41→20:48)
[2019-10-26] MEDS: methylPREDNISolone SOD SUCC 40 MG/ML IV SCH ×2 (01:41→14:10)
[2019-10-26 01:44] VITALS: BP 151/86
[2019-10-26] MEDS: HEPARIN 5,000 UNITS/ML, 1ML SQ SCH ×3 (04:17→20:47)
[2019-10-26] MEDS: MEXILETINE 150 MG CAPSULE PO SCH ×3 (04:18→20:47)
[2019-10-26 05:46] LABS: BASOPHILS # (AUTO) 0.01 x10^3/uL (0-0.1); BASOPHILS % (AUTO) 0 % (0-1); EOSINOPHILS % (AUTO) 0 % (1-7); LYMPHOCYTES # (AUTO) 0.35 x10^3/uL (1-3.4); LYMPHOCYTES % (AUTO) 2 % (22-44); MD NO; MEAN CORPUSCULAR HEMOGLOBIN 31.3 pg (27.0-34.8); MEAN CORPUSCULAR VOLUME 94.8 fL (80-100); MEAN PLATELET VOLUME 7.5 fL (7.4-10.4); MONOCYTES # (AUTO) 0.48 x10^3/uL (0.2-0.8); MONOCYTES % (AUTO) 3 % (2-9); NEUTROPHILS # (AUTO) 13.77 x10^3/uL (1.8-6.8); NEUTROPHILS % (AUTO) 94 % (42-75); PLATELET COUNT 305 x10^3/uL (130-400); RED BLOOD COUNT 4.12 x10^6/uL (3.82-5.3); RED CELL DISTRIBUTION WIDTH 14.3 % (9.6-15.2)
[2019-10-26] MEDS: CARVEDILOL 3.125 MG TABLET PO SCH ×2 (05:49→17:50)
[2019-10-26 05:57] LABS: ANION GAP 4 mmol/L (5-15); CALCIUM 8.5 mg/dL (8.5-10.1); CHLORIDE 100 mmol/L (98-107)
[2019-10-26 06:00] LABS: CREATININE 0.71 mg/dL (0.55-1.02)
[2019-10-26 06:08] LABS: C-REACTIVE PROTEIN, QUANT < 0.02 mg/dL (0.02-0.49)
[2019-10-26 07:54] VITALS: BP 127/75
[2019-10-26] MEDS: CLOPIDOGREL 75 MG TABLET PO SCH (08:13)
[2019-10-26] MEDS: FAMOTIDINE 20 MG TABLET PO SCH ×2 (08:13→20:47)
[2019-10-26] MEDS: AMIODARONE 200 MG TABLET PO SCH (08:13)
[2019-10-26] MEDS: SODIUM CHLORIDE FLUSH 10ML SYR IVF SCH ×2 (08:14→20:48)
[2019-10-26] MEDS: FLUTICASONE/VILANTEROL 200-25MCG/INH INH SCH (08:15)
[2019-10-26] MEDS: TIOTROPIUM INH SCH (08:16)
[2019-10-26] MEDS: CEFTRIAXONE PMX 2GM/50ML 50 ML IV SCH (12:15)
[2019-10-26 12:56] VITALS: BP 132/61
[2019-10-26] MEDS: AZITHROMYCIN 500 MG in SODIUM CHLORIDE 0.9% 250 ML IV SCH (12:58)
[2019-10-26] MEDS ORDERED: AZIT500T PO (15:14)
[2019-10-26] MEDS ORDERED: CEFD300C37 PO (15:14)
[2019-10-26] MEDS ORDERED: PRED10TA14 PO (15:40)
[2019-10-26 20:39] VITALS: BP 135/85
[2019-10-27 01:12] VITALS: BP 143/84
[2019-10-27] MEDS: methylPREDNISolone SOD SUCC 40 MG/ML IV SCH (01:46)
[2019-10-27] MEDS: HYDROcodone/APAP 5/325 TABLET PO PRN ×2 (01:50→09:28)
[2019-10-27] MEDS: MEXILETINE 150 MG CAPSULE PO SCH (04:11)
[2019-10-27] MEDS: HEPARIN 5,000 UNITS/ML, 1ML SQ SCH (04:12)
[2019-10-27 04:27] LABS: BASOPHILS % (AUTO) 0 % (0-1); EOSINOPHILS % (AUTO) 0 % (1-7); LYMPHOCYTES # (AUTO) 0.45 x10^3/uL (1-3.4); LYMPHOCYTES % (AUTO) 4 % (22-44); MD NO; MEAN CORPUSCULAR HEMOGLOBIN 31.3 pg (27.0-34.8); MEAN CORPUSCULAR HGB CONC 33.3 g/dL (32.4-35.8); MEAN CORPUSCULAR VOLUME 94.2 fL (80-100); MEAN PLATELET VOLUME 7.6 fL (7.4-10.4); MONOCYTES # (AUTO) 0.49 x10^3/uL (0.2-0.8); MONOCYTES % (AUTO) 4 % (2-9); NEUTROPHILS # (AUTO) 12.09 x10^3/uL (1.8-6.8); NEUTROPHILS % (AUTO) 93 % (42-75); PLATELET COUNT 301 x10^3/uL (130-400); RED BLOOD COUNT 4.41 x10^6/uL (3.82-5.3); RED CELL DISTRIBUTION WIDTH 14.4 % (9.6-15.2)
[2019-10-27 04:34] LABS: ANION GAP 3 mmol/L (5-15); CALCIUM 8.7 mg/dL (8.5-10.1); CHLORIDE 99 mmol/L (98-107)
[2019-10-27] MEDS: CARVEDILOL 3.125 MG TABLET PO SCH (05:42)
[2019-10-27 06:49] VITALS: BP 136/88
[2019-10-27] MEDS: FLUTICASONE/VILANTEROL 200-25MCG/INH INH SCH (09:00)
[2019-10-27] MEDS: TIOTROPIUM INH SCH (09:00)
[2019-10-27] MEDS: CLOPIDOGREL 75 MG TABLET PO SCH (09:16)
[2019-10-27] MEDS: FAMOTIDINE 20 MG TABLET PO SCH (09:16)
[2019-10-27] MEDS: SODIUM CHLORIDE FLUSH 10ML SYR IVF SCH (09:18)
[2019-10-27] MEDS: AMIODARONE 200 MG TABLET PO SCH (09:18)
== END 2019-10-27 12:12 | disposition home or self-care (01) | DRG 871 ==
LOC: ED 08:51 → EDIP 11:14 → SUATTDRO 11:58 → ICU 13:06 → 4NW 10-24 15:40 → 3N 10-26 16:18
PROVIDERS: ADMIT Internal Medicine; ATTEND Internal Medicine
PROC: 0T9B70Z Drainage of Bladder with Drainage Device, Via Natural or Artificial Opening (ICD-10-PCS; principal; 2019-10-22)
PROC: 5A1945Z Respiratory Ventilation, 24-96 Consecutive Hours (ICD-10-PCS; 2019-10-22)
PROC: 0BH17EZ Insertion of Endotracheal Airway into Trachea, Via Natural or Artificial Opening (ICD-10-PCS; 2019-10-22)
DX: A41.89 Other specified sepsis (principal); J96.21 Acute and chronic respiratory failure with hypoxia; J96.22 Acute and chronic respiratory failure with hypercapnia; J18.9 Pneumonia, unspecified organism; I47.2 Ventricular tachycardia; I50.22 Chronic systolic (congestive) heart failure; Z99.11 Dependence on respirator [ventilator] status; E78.1 Pure hyperglyceridemia; G47.33 Obstructive sleep apnea (adult) (pediatric); I11.0 Hypertensive heart disease with heart failure; I25.10 Atherosclerotic heart disease of native coronary artery without angina pectoris; I25.2 Old myocardial infarction; I25.5 Ischemic cardiomyopathy; I44.7 Left bundle-branch block, unspecified; J43.9 Emphysema, unspecified; Z86.79 Personal history of other diseases of the circulatory system; Z87.891 Personal history of nicotine dependence; Z95.5 Presence of coronary angioplasty implant and graft; Z95.810 Presence of automatic (implantable) cardiac defibrillator; Z99.81 Dependence on supplemental oxygen; Z20.828 Contact with and (suspected) exposure to other viral communicable diseases
CPT/HCPCS: 31500; 36415; 36600; 51702; 84145; 85730; 96365; 96375; 99291; J3490; J7626; 71045; 80048; 80053; 80061; 81001; 82728; 82803; 83605; 83615; 83735; 84100; 84478; 84484; 85025; 85379; 85610; 86140; 87040; 87070; 87077; 87081; 87186; 87205; 93005; 94002; 94003; 94150; 94640; G0378; J0456; J0696; J1644; J2704; J3010; J0330; J2920; J7030; J7040; J7050; U0001